=== PATIENT | female | born 1995 | race Caucasian/White ===

== ENCOUNTER → 2017-05-29 | Outpatient (CLI) | payer OTHER ==
--- NOTE | 2017-06-05 12:45 | EM ---
HOLTER MONITOR Patient was monitored for 24 hours. Baseline rhythm is sinus mechanism with normal conduction. The average rate 87 beats per minute, minimum of 50, maximum 150 beats per minute. Ventricular ectopic activity was present in the form of rare single PVCs. Supraventricular ectopic activity was present in the form of rare single PACs. Symptoms of racing heart, palpitation, tightness did not correlate with any dysrhythmia. CONCLUSION: 1. Sinus mechanism baseline rhythm. 2. Rare ventricular ectopic activity. 3. Rare supraventricular ectopic activity. 4. Symptoms did not correlate with any dysrhythmia. MTDD
== END | disposition home or self-care (01) ==
LOC: RADECHMAIN 12:46
PROVIDERS: ATTEND Family Medicine
DX: R00.2 Palpitations (principal)
CPT/HCPCS: 93225; 93226

== ENCOUNTER → 2017-12-13 | Outpatient (CLI) | payer OTHER ==
[2017-12-13 16:43] LABS: Anisocytosis Slight; HCT 35.2 % (34.0-46.0); HGB 10.6 gm/dL (11.4-16.0); Hypochromasia Marked; MCH 22.1 pg (25.0-35.0); MCHC 30.2 g/dL (31.0-37.0); MCV 73.1 fL (80.0-100.0); Mean Platelet Volume 7.6; Microcytosis Moderate; Platelet Count 280 k/uL (150-450); RBC 4.81 m/uL (3.80-5.40); WBC 14.3 k/uL (3.8-10.6)
[2017-12-13 16:53] LABS: Glucose 90 mg/dL (74-99)
[2017-12-14 05:45] LABS: Toxoplasma Antibody (IgG) <3.0 IU/mL (<7.2); Toxoplasma Antibody (IgM) <3.0 AU/mL (<8.0)
--- NOTE | 2017-12-14 11:56 | US ---
EXAMINATION TYPE: US OB <= 14 wk fetus DATE OF EXAM: 12/13/2017 COMPARISON: NONE CLINICAL HISTORY: O76 ABNORMAL OR ABSENT HEART SOUNDS. Absent heart tones at doctors office, gr avida 2, para1 EXAM PERFORMED: Transabdominal (TA) EXAM MEASUREMENTS: GESTATIONAL AGE / DATING Physician Established: (12 weeks/1 days) EDC: 06/26/2018 Dates by LMP: (12 weeks/1 days) EDC: 06/26/2018 Dates by First Scan: This is first scan Dates by Current Scan for: (9 weeks/0 days) EDC: 07/18/2018 MATERNAL ANATOMY Uterus: 9.9 x 6.8 x8.4cm, anteverted Right Ovary: 4.0 x 2.2 x 1.5cm Left Ovary: 3.3 x 2.0 x 2.2cm Post CDS / Adnexa: wnl Presence of free fluid: no Presence of corpus luteal cyst: left ovary: 1.4 x 1.5 x 1.3cm hypoechoic area, probably corpus luteum Presence of subchorionic bleed: 2.2 x 1.2 x 2.4cm complex area inferior to gestational sac, probably subchorionic bleed GESTATION / SURVEY CRL: 2.3cm (9 weeks/0 days) Yolk Sac (normal less than 6mm): 5.3mm Heart Rate: 177 bpm Rhythm: Normal IUP: Viable IUP Date of LMP: 09/19/2017 Beta HcG (if available): Not available at time of exam Viable single IUP measuring 9 weeks 0 days with a heart rate of 177bpm and an estimated delivery date of 07/18/2018, 2.4cm complex area inferior to gestational sac: probable subchorionic bleed. Single live intrauterine gestation is identified currently as gestational sac, yolk sac, and po le are seen. No free fluid is seen in pelvic cul-de-sac. There is small curvilinear fluid collection along inferior aspect of gestational sac felt to reflect small subchorionic hemorrhage. Both ovaries are identified. Within the left ovary there is 1.4 cm peripheral hypoechoic hypervascula r area felt to reflect corpus luteal cyst from recent ovulation. IMPRESSION: Single live intrauterine gestation is confirmed here, mean crown-rump length is 2.3 cm corresponding to 9 week 0 day old fetus.
== END | disposition home or self-care (01) ==
LOC: RADUSWWP 15:43
PROVIDERS: ATTEND Obstetrics & Gynecology
DX: O35.8XX0 Maternal care for other (suspected) fetal abnormality and damage, not applicable or unspecified (principal); Z3A.09 9 weeks gestation of pregnancy
CPT/HCPCS: 76801; 82565; 82947; 85027; 86762; 86777; 86778; 86780; 86850; 86900; 86901; 87340

== ENCOUNTER 2018-03-15 17:44 | Outpatient (CLI) | payer OTHER ==
[2018-03-15 18:25] LABS: Appearance,Urine Clear (Clear); Bacteria,Urine Rare /hpf; Bilirubin,Urine Negative (Negative); Blood,Urine Negative (Negative); Color,Urine Yellow; Glucose,Urine (UA) Negative (Negative); Ketones,Urine 4+ (Negative); Leukocyte Esterase,Urine Small (Negative); Mucus,Urine Moderate /hpf; Nitrite,Urine Negative (Negative); PH, Urine 5.5 (5.0-8.0); Protein,Urine 1+ (Negative); RBC,Urine 2 /hpf (0-5); Specific Gravity,Urine 1.025 (1.001-1.035); Squamous Epithelial Cell,Urine 4 /hpf (0-4); WBC,Urine 4 /hpf (0-5)
[2018-03-15] MEDS ORDERED: ONDANSETRON 4 MG/2 ML VIAL IVP STA (19:04)
[2018-03-15] MEDS: LACTATED RINGERS 1,000 ML IV SCH ×3 (19:12→21:30)
[2018-03-15 21:35] VITALS: BP 126/72; PULSE 112; RESP 16; TEMP 97.3
--- NOTE | 2018-04-03 08:57 | P.MSEPDOC ---
Presenting Problems - Arrival Data Date of Arrival on Unit: 03/15/18 Time of Arrival on Unit: 17:44 Mode of Transport: Wheelchair Medical History - Information : 2 Para: 1 Term: 1 : 0 Abortions: Spontaneous or Elective: 0 Number of Living Children: 1 - Gestational Age Gestational Age by MATTHEW (wks/days): 22 Weeks and 1 Days Vital Signs - Temperature Temperature: 97.3 F Temperature Source: Temporal Artery Scan - Pulse Right Brachial Pulse Rate: 112 Pulse Assessment Method: Automatic Cuff - Respirations Respiratory Rate: 16 Oxygen Delivery Method: Room Air O2 Sat by Pulse Oximetry: 98 - Blood Pressure Right Arm Blood Pressure: 126/72 Blood Pressure Mean: 90 Blood Pressure Source: Automatic Cuff Medical Screen Scoring (Post) - Cervical Exam Dilation: Exam Deferred Effacement: Exam Deferred Membranes: Intact - Uterine Contractions Frequency: N/A Duration: N/A Intensity: N/A - Maternal Vital Signs Maternal Temperature: N/A Maternal Blood Pressure: N/A Signs of Preeclampsia: N/A Maternal Respirations: N/A - Pain Assessment Pain Scale Used: Numeric (1 - 10) Pain Intensity: 0 - Maternal Trauma Maternal Trauma: N/A - Assessment Heart Rate: 155 Heart Rate - NICHD Category: Category I (Normal) = 0 Position: N/A Station: N/A - Total Score Total Score (Post): 0 - Post Treatment Level of Risk Post Treatment Level of Risk: Low (0-5) Physician Notification (Post) - Physician Notified Physician Notified Date: 03/15/18 Physician Notified Time: 18:52 Spoke With: Dr. Burns New Order Received: Yes (IV hydration, Zofran, if feels better after may be d/c home) - Notification Comment Comment: Pt felt better following IV hydration, no further vomit, fhts wnl Disposition - Disposition OB Disposition: Discharge to home, Written follow up instructions reviewed Discharge Date: 03/15/18 Discharge Time: 21:00 I agree with the RN Medical Screening Exam: Yes Risk & Benefit of care provided described in d/c instruction: Yes Diagnosis: VOMITING OF , UNSPECIFIED
== END 2018-03-15 21:00 | disposition home or self-care (01) ==
LOC: FBPOP 17:44
PROVIDERS: ATTEND Obstetrics & Gynecology
DX: O21.9 Vomiting of pregnancy, unspecified (principal); Z3A.22 22 weeks gestation of pregnancy
CPT/HCPCS: 96360; 96361; 96375; 81001; G0463; J2405; 99214

== ENCOUNTER 2018-07-12 05:50 | Inpatient (IN) | payer OTHER ==
--- NOTE | 2018-07-11 20:51 | P.HPOB ---
History of Present Illness H&P Date: 07/11/18 Chief Complaint: Induction of labor This is a 23-year-old female 2 para 1 with an estimated date of confinement of 07/18/2018, estimated gestational age of 39 and one sevenths weeks, presents to labor and delivery for induction of labor. She admits to good movement. She has been getting twice weekly nonstress test due to circumvallate placenta. She has also been followed by maternal- medicine. She is having irregular contractions. labs: Hepatitis B surface antigen-negative nonreactive Rubella-immune Syphilis antibody-nonreactive Toxoplasma screen-negative Random glucose-90 Hemoglobin-10.6 Blood type-A+ 1 hour Glucola-94 Group B streptococcus-negative Obstetrical history: . History of 1 vaginal delivery at 42 weeks. Gynecologic history: No history of sexual transmitted diseases. Review of Systems Constitutional: Denies chills, Denies fever Eyes: denies blurred vision, denies pain Ears, nose, mouth and throat: Denies headache, Denies sore throat Cardiovascular: Denies chest pain, Denies shortness of breath Respiratory: Denies cough Gastrointestinal: Reports abdominal pain (Irregular contractions), Denies diarrhea, Denies nausea, Denies vomiting Genitourinary: Reports pelvic pain, Reports Musculoskeletal: Reports low back pain Integumentary: Denies pruritus, Denies rash Neurological: Denies numbness, Denies weakness Endocrine: Reports fatigue Past Medical History Past Medical History: No Reported History History of Any Multi-Drug Resistant Organisms: None Reported Past Surgical History: Cholecystectomy, Tonsillectomy Past Anesthesia/Blood Transfusion Reactions: No Reported Reaction Smoking Status: Never smoker Past Alcohol Use History: None Reported Past Drug Use History: Marijuana (History prior to .) - Past Family History Mother Family Medical History: Chest Pain / Angina Additional Family Medical History / Comment(s): anxity Father Family Medical History: Thyroid Disorder Medications and Allergies Home Medications Medication Instructions Recorded Confirmed Type Pnv No.95/Ferrous Fum/Folic AC 1 each PO 07/11/18 History [ Multivitamin Tablet] Allergies Allergy/AdvReac Type Severity Reaction Status Date / Time No Known Allergies Allergy Verified 11/23/15 21:24 Exam Osteopathic Statement: *. No significant issues noted on an osteopathic structural exam other than those noted in the History and Physical/Consult. HEENT: Within normal limits Heart: Regular rate and rhythm Lungs: Clear to auscultation bilaterally Abdomen: Soft, nontender, Cervix: 2 cm/60%/-2 station heart tones: 160s by Doppler Extremities: Negative Homans Assessment and Plan (1) 39 weeks gestation of Status: Acute Code(s): Z3A.39 - 39 WEEKS GESTATION OF SNOMED Code( s): 57673367 (2) Circumvallate placenta Status: Acute Code(s): O43.119 - CIRCUMVALLATE PLACENTA, UNSPECIFIED TRIMESTER SNOMED Code(s): 3345811 Plan: Proceed with oxytocin induction of labor. Expectant management. Epidural anesthesia if desired.
[2018-07-12] MEDS ORDERED: METHYLERGONOVINE 0.2 MG/ML 1 ML AMP IM PRN (06:06)
[2018-07-12] MEDS ORDERED: OXYTOCIN 10 UNIT/ML 1 ML VIAL IM PRN (06:06)
[2018-07-12] MEDS ORDERED: LIDOCAINE 1% 20 ML VIAL (10MG/ML) FOR IV START INTRADERMA PRN (06:06)
[2018-07-12] MEDS ORDERED: OXYTOCIN 20 UNITS/1000 ML NS 1,000 ML IV SCH ×2 (06:06→16:37)
[2018-07-12] MEDS ORDERED: LIDOCAINE 1% (PF) 10 MG/ML (30 ML SDV) SQ PRN (06:06)
[2018-07-12] MEDS ORDERED: CARBOPROST TROMETHAMINE 250 MCG/ML 1 ML AMP IM PRN (06:06)
[2018-07-12] MEDS ORDERED: TERBUTALINE 1 MG/ML VIAL SQ PRN (06:06)
[2018-07-12] MEDS: LACTATED RINGERS 1,000 ML IV SCH ×3 (06:18→12:10)
[2018-07-12 06:29] LABS: Anisocytosis Moderate; Basophils % (A) 0 %; Eosinophils # (A) 0.2 k/uL (0-0.7); Eosinophils % (A) 1 %; HCT 36.5 % (34.0-46.0); HGB 11.8 gm/dL (11.4-16.0); Lymphocytes # (A) 2.3 k/uL (1.0-4.8); Lymphocytes % (A) 19 %; MCH 27.1 pg (25.0-35.0); MCHC 32.4 g/dL (31.0-37.0); MCV 83.5 fL (80.0-100.0); Mean Platelet Volume 9.3; Microcytosis Slight; Monocytes # (A) 0.5 k/uL (0-1.0); Monocytes % (A) 4 %; Neutrophils # (A) 8.7 k/uL (1.3-7.7); Neutrophils % (A) 74 %; Platelet Count 217 k/uL (150-450); RBC 4.37 m/uL (3.80-5.40); RDW 20.4 % (11.5-15.5); WBC 11.8 k/uL (3.8-10.6)
[2018-07-12] MEDS ORDERED: ROPIVACAINE 100 MG, fentaNYL (PF) 200 MCG in SODIUM CHLORIDE 0.9% 76 ML EPIDURAL ONE (12:03)
[2018-07-12] MEDS ORDERED: diphenhydrAMINE 25 MG CAP PO PRN (16:37)
[2018-07-12] MEDS ORDERED: ZOLPIDEM 5 MG TAB PO PRN (16:37)
[2018-07-12] MEDS ORDERED: SIMETHICONE 80 MG CHEWABLE PO PRN (16:37)
[2018-07-12] MEDS ORDERED: diphenhydrAMINE 50 MG CAP PO PRN (16:37)
[2018-07-12] MEDS ORDERED: HYDROCORTISONE 2.5% RECTAL CREAM 30 GM TUBE RECTAL PRN (16:37)
[2018-07-12] MEDS ORDERED: BENZOCAINE/MENTHOL SPRAY 1 GM/SPRAY AEROSOL TOPICAL PRN (16:37)
[2018-07-12] MEDS ORDERED: diphenhydrAMINE 50 MG/ML 1 ML VIAL IVP PRN ×2 (16:37)
[2018-07-12] MEDS ORDERED: LANOLIN CREAM 5 GM TUBE TOPICAL PRN (16:37)
[2018-07-12] MEDS ORDERED: WITCH HAZEL 1 EACH MED..PAD TOPICAL PRN (16:37)
[2018-07-12] MEDS ORDERED: ACETAMINOPHEN TAB 325 MG TAB PO PRN (16:37)
--- NOTE | 2018-07-12 16:51 | P.PROBDLV ---
Vaginal Delivery Note - . Vaginal Delivery Note: The patient progressed to complete dilation after oxytocin induction of labor and artificial rupture membranes with clear fluid. She did receive epidural anesthesia. Once reaching complete dilation, she began pushing. Infant's head came to a crown. 's head delivered across the perineum in a right occiput posterior lie. Nose and mouth were bulb suctioned at the perineum. With one further push the remainder the infant easily delivered reducing nuchal cord times one around the body. Infant was placed on mother's abdomen and cord was clamped and cut. A viable male infant is noted with scores of 9 at 1 minute and 10 at 5 minutes and infant weight of 7 lbs. 3 oz. Placenta delivered shortly thereafter, intact, with a three-vessel cord. Uterus contracted well after oxytocin was given and uterine massage was carried out. Bladder was also drained and some blood clot was expressed from the intrauterine cavity. No further placental tissue was noted. Inspection of the perineum revealed a first-degree perineal laceration. This area was anesthetized with 1% lidocaine and then sutured with 3-0 Vicryl suture in a running locked fashion. Estimated blood loss is approximately 200 mL's. Mother and infant are in stable condition.
[2018-07-12] MEDS: SENNOSIDES-DOCUSATE SODIUM 1 EACH TAB PO SCH (20:17)
[2018-07-13 01:16] VITALS: RESP 16
[2018-07-13] MEDS: IBUPROFEN 600 MG TAB PO PRN ×2 (04:16→10:11)
[2018-07-13 09:20] LABS: Anisocytosis Moderate; Basophils % (A) 0 %; Eosinophils # (A) 0.2 k/uL (0-0.7); Eosinophils % (A) 1 %; HCT 35.5 % (34.0-46.0); HGB 10.7 gm/dL (11.4-16.0); Hypochromasia Slight; Lymphocytes # (A) 1.7 k/uL (1.0-4.8); Lymphocytes % (A) 12 %; MCH 25.9 pg (25.0-35.0); MCHC 30.1 g/dL (31.0-37.0); MCV 86.2 fL (80.0-100.0); Mean Platelet Volume 9.1; Microcytosis Slight; Monocytes # (A) 0.5 k/uL (0-1.0); Monocytes % (A) 3 %; Neutrophils # (A) 11.2 k/uL (1.3-7.7); Neutrophils % (A) 82 %; Platelet Count 207 k/uL (150-450); RBC 4.12 m/uL (3.80-5.40); RDW 20.5 % (11.5-15.5); WBC 13.8 k/uL (3.8-10.6)
[2018-07-13] MEDS: SENNOSIDES-DOCUSATE SODIUM 1 EACH TAB PO SCH (10:12)
--- NOTE | 2018-07-13 11:43 | P.DS ---
Providers Date of admission: 07/12/18 05:50 Expected date of discharge: 07/13/18 Attending physician: Liv Burns Primary care physician: Stated None - Discharge Diagnosis(es) (1) 39 weeks gestation of Current Visit: No Status: Acute (2) Circumvallate placenta Current Visit: No Status: Acute Hospital Course: This is a 23-year-old female 2 para 1 at 39 and one sevenths weeks who presented for induction of labor. She underwent oxytocin induction of labor and artificial rupture membranes with clear fluid noted. She did receive epidural anesthesia. She delivered a viable male infant on 07/12/2018 with scores of 9 at 1 minute and 10 at 5 minutes and infant weight of 7 lbs. 3 oz. Nuchal cord times one was noted. Her course has been uncomplicated. She is breast-feeding. Lochia is decreasing. Pain is fairly well controlled. Vital signs are stable. Abdomen is soft with fundus firm and nontender. Extremities show negative Homans. Impression is status post vaginal delivery day #1. Plan is to discharge home today. Routine instructions are given. She will be given a prescription for ibuprofen and a breast pump. She is advised to call the office if she has any further questions or concerns prior to her appointment time. She is advised to follow up in 6 weeks in the office. Procedures: Oxytocin induction of labor Spontaneous vaginal delivery of a viable male on 07/12/2018. Patient Condition at Discharge: Stable Plan - Discharge Summary New Discharge Prescriptions: New Ibuprofen [Motrin] 600 mg PO Q6HR PRN #60 tab PRN Reason: Mild Pain Or Fever >= 100.5 Continue Pnv No.95/Ferrous Fum/Folic AC [ Multivitamin Tablet] 1 each PO DAILY No Action Ferrous Sulfate [Feosol] 325 mg PO DAILY Discharge Medication List Pnv No.95/Ferrous Fum/Folic AC [ Multivitamin Tablet] 1 each PO DAILY [History] Ferrous Sulfate [Feosol] 325 mg PO DAILY 07/12/18 [History] Ibuprofen [Motrin] 600 mg PO Q6HR PRN #60 tab 07/13/18 [Rx] Follow up Appointment(s)/Referral(s): Liv Burns DO [Doctor of Osteopathic Medicine] - 6 Weeks Activity/Diet/Wound Care/Special Instructions: Instructions 1. Do not begin any exercise program for 3 weeks. 2. Do not resume sexual relations for 3 weeks or longer if uncomfortable. 3. You may take tub baths or showers at any time. 4. You may use tampons if desired after 3 weeks. 5. Keep the area of episiotomy (stitches) clean and dry. 6. If you are not nursing, wear a good fitting, supportive bra during the day and limit fluid intake for at least 1 week to prevent breast engorgement. 7. Call the office, [phone], within the next week to make appointment for your 6 week checkup if it has not already been made. 8. Report any of the following occurrences to the doctor promptly: a. Heavy, excessive bleeding b. Chills, fever c. Burning or frequency of urination d. Pain or redness and breasts if nursing e. Increasing pain or swelling in episiotomy (stitches). In addition to the above instructions, the following additional should be followed: 1. No heavy lifting or straining (exercising) until after 6 week checkup. 2. Keep abdominal incision clean and dry: You may wear a dressing if more comfortable. 3. Make office appointment for 10 days after going home or as instructed by her doctor. Discharge Disposition: HOME SELF-CARE
[2018-07-13 16:16] VITALS: BP 104/68; PULSE 68; TEMP 97.8
== END 2018-07-13 17:15 | disposition home or self-care (01) | DRG 775 ==
LOC: 4FBP 05:50
PROVIDERS: ADMIT Obstetrics & Gynecology; ATTEND Obstetrics & Gynecology
PROC: 10E0XZZ Delivery of Products of Conception, External Approach (ICD-10-PCS; principal; 2018-07-12)
PROC: 0HQ9XZZ Repair Perineum Skin, External Approach (ICD-10-PCS; 2018-07-12)
PROC: 3E033VJ Introduction of Other Hormone into Peripheral Vein, Percutaneous Approach (ICD-10-PCS; 2018-07-12)
PROC: 10907ZC Drainage of Amniotic Fluid, Therapeutic from Products of Conception, Via Natural or Artificial Opening (ICD-10-PCS; 2018-07-12)
PROC: 00HU33Z Insertion of Infusion Device into Spinal Canal, Percutaneous Approach (ICD-10-PCS; 2018-07-12)
PROC: 3E0R3BZ Introduction of Anesthetic Agent into Spinal Canal, Percutaneous Approach (ICD-10-PCS; 2018-07-12)
DX: O43.113 Circumvallate placenta, third trimester (principal); O69.81X0 Labor and delivery complicated by cord around neck, without compression, not applicable or unspecified; O70.0 First degree perineal laceration during delivery; Z37.0 Single live birth; Z3A.39 39 weeks gestation of pregnancy; Z79.899 Other long term (current) drug therapy
CPT/HCPCS: 85025

== ENCOUNTER 2019-01-12 08:10 | Emergency (ER) | payer OTHER ==
[2019-01-12 08:19] VITALS: RESP 18; TEMP 98.2
[2019-01-12] MEDS ORDERED: KETOROLAC 30 MG/ML 1 ML VIAL IM STA (09:04)
[2019-01-12] MEDS ORDERED: DIAZEPAM 5 MG/ML 2 ML INJ IM ONE (09:08)
[2019-01-12] MEDS ORDERED: HYDROmorphone 0.5 MG/0.5 ML SYRINGE IM STA (11:08)
--- NOTE | 2019-01-12 12:21 | ED ---
General Adult HPI - General Chief complaint: Back Pain/Injury Stated complaint: BACK PAIN Time Seen by Provider: 01/12/19 08:23 Source: patient, RN notes reviewed Mode of arrival: EMS Limitations: no limitations - History of Present Illness Initial comments: 23-year-old female presents to the emergency department for a chief complaint of back pain 3 weeks. Patient states that her back pain seems to be worsening. She states that the pain is along the sides of her spine. She states that if she is laying still he feels better. However if she moves she starts to feel her low back cramping up. She states that the pain is mostly paraspinal and denies any midline pain. She states she feels the muscles cramping when she moves. She states today it was difficult to walk due to this cramping pain. She denies any leg weakness or her legs giving out. She does admit to left leg radicular pain. States she has had a history of sciatica since her previous . Patient states she was seen at urgent care yesterday and had negative x-rays of the lumbar spine. Patient states she was given Toradol and Robaxin which do not seem to be helping much with her pain. Patient has no other complaints at this time including shortness of breath, chest pain, abdominal pain, nausea or vomiting, headache, or visual changes. - Related Data Home Medications Medication Instructions Recorded Confirmed Methocarbamol [Robaxin] 500 mg PO BID 01/12/19 01/12/19 Naproxen 500 mg PO BID 01/12/19 01/12/19 Norgestimate-Ethinyl Estradiol 1 tab PO DAILY 01/12/19 01/12/19 [Tri-Sprintec Tablet] Previous Rx's Medication Instructions Recorded Diazepam [Valium] 5 mg PO Q8H PRN 3 Days #9 tab 01/12/19 predniSONE 50 mg PO DAILY #5 tablet 01/12/19 Allergies Allergy/AdvReac Type Severity Reaction Status Date / Time No Known Allergies Allergy Verified 01/12/19 10:12 Review of Systems ROS Statement: Those systems with pertinent positive or pertinent negative responses have been documented in the HPI. ROS Other: All systems not noted in ROS Statement are negative. Past Medical History Past Medical History: No Reported History History of Any Multi-Drug Resistant Organisms: None Reported Past Surgical History: Cholecystectomy, Tonsillectomy Past Anesthesia/Blood Transfusion Reactions: No Reported Reaction Past Psychological History: No Psychological Hx Reported, Anxiety Smoking Status: Never smoker Past Alcohol Use History: Rare Past Drug Use History: Marijuana - Past Family History Mother Family Medical History: Chest Pain / Angina Additional Family Medical History / Comment(s): anxity Father Family Medical History: Thyroid Disorder General Exam Limitations: no limitations General appearance: alert, in no apparent distress Head exam: Present: atraumatic, normocephalic, normal inspection Eye exam: Present: normal appearance, PERRL, EOMI. Absent: scleral icterus, conjunctival injection, periorbital swelling ENT exam: Present: normal exam, mucous membranes moist Neck exam: Present: normal inspection, full ROM. Absent: tenderness, meningismus, lymphadenopathy Respiratory exam: Present: normal lung sounds bilaterally. Absent: respiratory distress, wheezes, rales, rhonchi, stridor Cardiovascular Exam: Present: regular rate, normal rhythm, normal heart sounds. Absent: systolic murmur, diastolic murmur, rubs, gallop, clicks GI/Abdominal exam: Present: soft, normal bowel sounds. Absent: distended, tenderness, guarding, rebound, rigid Extremities exam: Present: normal capillary refill (Refill less than 2 seconds and DP pulse 2+ in lower extremities bilaterally), other (sensation intact throughout lower extremities bilat. sensation intact through saddle region and bilat upper thighs) Back exam: Present: paraspinal tenderness (She was mild tenderness of the paraspinal muscles bilaterally.), other (Positive straight leg raise test on the left leg, negative on the right. Patient able to stand to use the restroom. Patient able to ambulate). Absent: full ROM (Unable to flex or extend lumbar spine greater than 20.), vertebral tenderness (No cervical, thoracic, or lumbar spine tenderness.) Neurological exam: Present: alert, oriented X3, CN II-XII intact Psychiatric exam: Present: normal affect, normal mood Course Vital Signs 01/12/19 01/12/19 01/12/19 08:14 08:15 08:30 Temperature 98.2 F Pulse Rate 97 71 62 Respiratory 18 18 18 Rate Blood Pressure 124/81 124/81 124/81 O2 Sat by Pulse 98 97 96 Oximetry 01/12/19 01/12/19 01/12/19 09:00 09:30 10:00 Temperature Pulse Rate 68 66 68 Respiratory 18 18 18 Rate Blood Pressure 118/73 124/79 110/98 O2 Sat by Pulse 99 97 97 Oximetry 01/12/19 01/12/19 10:30 12:30 Temperature Pulse Rate 69 68 Respiratory 18 18 Rate Blood Pressure 136/85 132/81 O2 Sat by Pulse 98 97 Oximetry Medical Decision Making - Medical Decision Making 23-year-old female presents to the emergency department for a chief complaint of back pain. Patient was admitted to radicular pain into the left leg. Patient is on Robaxin and Motrin without relief. She states pain is mostly paraspinal and cramping in nature. Sensation is intact throughout lower extremities. Full strength 5 out of 5 in the lower extremities bilaterally. Neurovascular intact. No neuro deficits. Patient denying bladder or bowel changes. Patient denying saddle anesthesia Patient is able to stand and ambulate in the room although does have pain when doing so due to cramping nature. X-rays were negative at urgent care. She had negative and clear urine at that time. Patient was given Toradol and Valium and is feeling much better. Patient also given Dilaudid throughout her stay. Patient is feeling well enough to go home. However I did discuss that patient may need an MRI outpatient and to follow up with primary care or Dr. Garcia tomorrow. If symptoms are worsening or if she is having bladder or bowel changes saddle anesthesia or leg weakness to return here immediately. All questions answered. Patient agrees with plan of care. Disposition Clinical Impression: Back pain, Muscle spasm Disposition: HOME SELF-CARE Condition: Good Instructions (If sedation given, give patient instructions): Acute Low Back Pain (ED) Additional Instructions: Please take medications as directed. Do not drive or operate machinery while taking Valium. Please follow-up with your primary care provider or orthopedics tomorrow. Return here to the emergency department if you have any worsening symptoms. Prescriptions: Diazepam [Valium] 5 mg PO Q8H PRN 3 Days #9 tab PRN Reason: Pain predniSONE 50 mg PO DAILY #5 tablet Is patient prescribed a controlled substance at d/c from ED?: Yes When asked, does pt state using other controlled substances?: No If prescribed controlled substance>3 days was MAPS reviewed?: Prescribed <3 Days Referrals: Mallory Dyer MD [Primary Care Provider] - 1-2 days Sebastián Garcia DO [Doctor of Osteopathic Medicine] - 1-2 days Time of Disposition: 12:19
[2019-01-12 12:56] VITALS: BP 132/81; PULSE 68
== END 2019-01-12 12:55 | disposition home or self-care (01) ==
LOC: EC 08:10
DX: M54.9 Dorsalgia, unspecified (principal); M62.830 Muscle spasm of back; Z79.1 Long term (current) use of non-steroidal anti-inflammatories (NSAID); Z79.899 Other long term (current) drug therapy; Z79.3 Long term (current) use of hormonal contraceptives
CPT/HCPCS: 99283; 96372 ×3; J3360; J1885; J1170

== ENCOUNTER → 2019-05-06 | Outpatient (CLI) | payer OTHER ==
--- NOTE | 2019-05-06 11:48 | XR ---
EXAMINATION TYPE: XR lumbar spine 2 or 3V DATE OF EXAM: 05/06/2019 CLINICAL HISTORY: Low back pain for a few months. TECHNIQUE: Frontal and lateral images of the lumbar spine are obtained. COMPARISON: None. FINDINGS: There are 5 lumbar type vertebral bodies identified given the assumption of the accessory right L1 rib. The lumbar spine shows satisfactory alignment without evidence of acute fracture or di slocation. Vertebral body heights and disk space heights are within normal limits. The overlying so ft tissue appears unremarkable. IMPRESSION: As above.
== END | disposition home or self-care (01) ==
LOC: RADXRMAIN 10:06
PROVIDERS: ATTEND Family Medicine
DX: M54.5 Low back pain (principal)
CPT/HCPCS: 72100

== ENCOUNTER 2019-06-17 17:51 | Emergency (ER) | payer OTHER ==
[2019-06-17 18:02] VITALS: TEMP 97.9
[2019-06-17] MEDS ORDERED: ONDANSETRON 4 MG/2 ML VIAL IVP STA (18:41)
[2019-06-17] MEDS ORDERED: SODIUM CHLORIDE 0.9% 1,000 ML IV STA (18:41)
[2019-06-17 19:26] VITALS: RESP 18
[2019-06-17 19:27] LABS: ALT 38 U/L (9-52); AST 33 U/L (14-36); African American GFR (CKD) >90 (>60 ml/min/1.73 sqM); Albumin 4.3 g/dL (3.5-5.0); Alkaline Phosphatase 128 U/L (38-126); Amylase 51 U/L (30-110); Anion Gap 9 mmol/L; Blood Urea Nitrogen 6 mg/dL (7-17); Calcium 9.7 mg/dL (8.4-10.2); Carbon Dioxide 23 mmol/L (22-30); Chloride 107 mmol/L (98-107); Glucose 97 mg/dL (74-99); Potassium 4.2 mmol/L (3.5-5.1); Sodium 139 mmol/L (137-145); Total Bilirubin 0.2 mg/dL (0.2-1.3); Total Protein 7.3 g/dL (6.3-8.2)
[2019-06-17 19:35] LABS: Anisocytosis Slight; Basophils % (A) 0 %; Eosinophils # (A) 0.2 k/uL (0-0.7); Eosinophils % (A) 2 %; HCT 42.9 % (34.0-46.0); HGB 14.1 gm/dL (11.4-16.0); Lymphocytes # (A) 1.5 k/uL (1.0-4.8); Lymphocytes % (A) 19 %; MCH 28.4 pg (25.0-35.0); MCHC 32.8 g/dL (31.0-37.0); MCV 86.5 fL (80.0-100.0); Mean Platelet Volume 8.7; Monocytes # (A) 0.3 k/uL (0-1.0); Monocytes % (A) 4 %; Neutrophils # (A) 5.8 k/uL (1.3-7.7); Neutrophils % (A) 73 %; Platelet Count 243 k/uL (150-450); RBC 4.96 m/uL (3.80-5.40); RDW 16.6 % (11.5-15.5)
[2019-06-17 20:00] LABS: Appearance,Urine Cloudy (Clear); Bilirubin,Urine Negative (Negative); Blood,Urine Negative (Negative); Color,Urine Yellow; Glucose,Urine (UA) Negative (Negative); Hyaline Casts,Urine 4 /lpf (0-2); Ketones,Urine Negative (Negative); Leukocyte Esterase,Urine Small (Negative); Mucus,Urine Moderate /hpf; Nitrite,Urine Negative (Negative); Protein,Urine Trace (Negative); RBC,Urine 6 /hpf (0-5); Specific Gravity,Urine 1.022 (1.001-1.035); Squamous Epithelial Cell,Urine 13 /hpf (0-4); WBC,Urine 3 /hpf (0-5)
--- NOTE | 2019-06-17 20:52 | CT ---
EXAMINATION TYPE: CT abdomen pelvis w con DATE OF EXAM: 06/17/2019 COMPARISON: None HISTORY: NVD x several weeks CT DLP: 1191.6 mGycm Automated exposure control for dose reduction was used. CONTRAST: CT scan of the abdomen pelvis is performed with IV Contrast, patient injected with 100 mL of Isovue 3 00. FINDINGS- LUNG BASES- No significant abnormality is appreciated. LIVER/GB- No gross abnormality is appreciated. PANCREAS- No gross abnormality is seen. SPLEEN- No gross abnormality is seen. ADRENALS- No gross abnormality is seen. KIDNEYS/BLADDER- no hydronephrosis nephrolithiasis or renal mass. BOWEL- no bowel dilatation. Appendix not seen with certainty. A few scattered lymph nodes are seen i n the right mesentery.. LYMPH NODES- No greater than 1cm abdominal or pelvic lymph nodes areappreciated. OSSEOUS STRUCTURES- No significant abnormality is seen. OTHER- asymmetry of the ovaries on the right suspect a 2 cm right-sided ovarian cyst. Tiny fat-conta ining periumbilical hernia. IMPRESSION- 1. A few scattered lymph nodes are seen in the mesentery in the right associated with a mild mesenter ic adenitis correlate clinically. 2. Question a dominant follicle or small right ovarian cyst. 3. Nonvisualization of the appendix.
[2019-06-17 21:54] VITALS: BP 122/79; PULSE 70
--- NOTE | 2019-06-17 22:15 | ED ---
Nausea/Vomiting/Diarrhea HPI - General Chief complaint: Nausea/Vomiting/Diarrhea Stated complaint: NVD Time Seen by Provider: 06/17/19 18:41 Source: patient Mode of arrival: ambulatory Limitations: no limitations - History of Present Illness Initial comments: 24yo female with hx of previous cholecystectomy presenting today for cc of epigastric pain, vomiting diarrhea x >1 month. Patient sates that she has had symptoms for "much longer" than a month. SHe states she has been evaluated on multiple occasions by her PCP. Who ordered an outpatient CT scheduled for tomorrow. Patient denies jaundice, noticing a pattern with the pain, alleviating or aggrevating factors. She states for the past two weeks the pain appeared increased, denies changes within the last week. Patient denies travel, melena, hematochezia, RLQ pain, hematemesis, fever, recent antibiotic use or recent surgeries. Patient denies . Remaining review of system negative. Graeme koehler states she presents today because of the persistence of symptoms. - Related Data Home Medications Medication Instructions Recorded Confirmed Cetirizine HCl 10 mg PO DAILY 06/17/19 06/17/19 DULoxetine HCL [Cymbalta] 30 mg PO DAILY 06/17/19 06/17/19 Loperamide HCl [Loperamide] 2 mg PO QID PRN 06/17/19 06/17/19 Norgestimate-Ethinyl Estradiol 1 tab PO DAILY 06/17/19 06/17/19 [Sprintec 28 Day Tablet] Omeprazole [PriLOSEC] 20 mg PO AC-BRKFST 06/17/19 06/17/19 Previous Rx's Medication Instructions Recorded Cephalexin [Keflex] 500 mg PO Q12HR 5 Days #10 cap 06/17/19 Ondansetron Odt [Zofran Odt] 4 mg PO Q8HR PRN 7 Days #21 tab 06/17/19 Allergies Allergy/AdvReac Type Severity Reaction Status Date / Time No Known Allergies Allergy Verified 06/17/19 18:52 Review of Systems ROS Statement: Those systems with pertinent positive or pertinent negative responses have been documented in the HPI. ROS Other: All systems not noted in ROS Statement are negative. Past Medical History Past Medical History: No Reported History History of Any Multi-Drug Resistant Organisms: None Reported Past Surgical History: Cholecystectomy, Tonsillectomy Past Anesthesia/Blood Transfusion Reactions: No Reported Reaction Past Psychological History: No Psychological Hx Reported, Anxiety Smoking Status: Never smoker Past Alcohol Use History: Rare Past Drug Use History: Marijuana - Past Family History Mother Family Medical History: Chest Pain / Angina Additional Family Medical History / Comment(s): anxity Father Family Medical History: Thyroid Disorder General Exam - General Exam Comments Initial Comments: General: The patient is awake and alert, in no distress, and does not appear acutely ill. Eye: Pupils are equal, round and reactive to light, extra-ocular movements are intact. No nystagmus. There is normal conjunctiva bilaterally. No signs of icterus. Ears, nose, mouth and throat: There are moist mucous membranes and no oral lesions. Neck: The neck is supple, there is no tenderness or JVD. Cardiovascular: There is a regular rate and rhythm. No murmur, rub or gallop is appreciated. Respiratory: Lungs are clear to auscultation, respirations are non-labored, breath sounds are equal. No wheezes, stridor, rales, or rhonchi. Gastrointestinal: Soft, non-distended, but appears to be mild tenderness to palpation of the epigastric region of the abdomen without masses or organomegaly noted. No right lower quadrant tenderness appreciated. No lower abdominal or pelvic tenderness appreciated. There is no rebound or guarding present. No CVA tenderness. Bowel sounds are unremarkable. Musculoskeletal: Normal ROM, no tenderness. Strength 5/5. Sensation intact. Pulses equal bilaterally 2+. Neurological: A&O x 3. CN II-XII intact, There are no obvious motor or sensory deficits. Coordination appears grossly intact. Speech is normal. Skin: Skin is warm and dry and no rashes or lesions are noted. Psychiatric: Cooperative, appropriate mood & affect, normal judgment. Limitations: no limitations Course Vital Signs 06/17/19 06/17/19 06/17/19 18:00 18:58 19:24 Temperature 97.9 F Pulse Rate 83 80 80 Respiratory 16 16 18 Rate Blood Pressure 122/77 126/79 128/81 O2 Sat by Pulse 98 99 100 Oximetry 06/17/19 21:52 Temperature 97.9 F Pulse Rate 70 Respiratory 18 Rate Blood Pressure 122/79 O2 Sat by Pulse 100 Oximetry Medical Decision Making - Medical Decision Making Well-appearing 24-year-old female. No signs of dehydration clinically on examination. Patient complains of diarrhea and vomiting abdominal pain on and off for the past month. Patient denies any specific alleviating or aggravating factors. Patient states she has seen her primary care for this complaint and had an outpatient CT ordered for tomorrow. CT was obtained today revealing no acute abdominal process the appendix was not visualized her patient has no complaints on examination or history taking of right lower quadrant tenderness. Patient's tenderness is in the epigastric region. Lipase within normal limits. No noted abnormalities of the pancreas. Patient unable to provide a stool sample. Urinalysis revealed findings consistent with possible developing urinary tract infection patient states she is prone to them and would like treatment. Patient ordered Keflex 500 mg twice a day outpatient. Otherwise at this time patient's symptoms are controlled Zofran she appears well. She is agreeable discharge with gastroenterology follow-up for further evaluation. Case discussed with attending provider Dr. Hammond who is agreeable with care plan. - Lab Data Result diagrams: 06/17/19 19:06/17/19 19:01 Lab Results 06/17/19 06/17/19 06/17/19 Range/Units 19:01 19:01 19:46 WBC 8.0 (3.8-10.6) k/uL RBC 4.96 (3.80-5.40) m/uL Hgb 14.1 (11.4-16.0) gm/dL Hct 42.9 (34.0-46.0) % MCV 86.5 (80.0-100.0) fL MCH 28.4 (25.0-35.0) pg MCHC 32.8 (31.0-37.0) g/dL RDW 16.6 H (11.5-15.5) % Plt Count 243 (150-450) k/uL Neutrophils % 73 % Lymphocytes % 19 % Monocytes % 4 % Eosinophils % 2 % Basophils % 0 % Neutrophils # 5.8 (1.3-7.7) k/uL Lymphocytes # 1.5 (1.0-4.8) k/uL Monocytes # 0.3 (0-1.0) k/uL Eosinophils # 0.2 (0-0.7) k/uL Basophils # 0.0 (0-0.2) k/uL Anisocytosis Slight Sodium 139 (137-145) mmol/L Potassium 4.2 (3.5-5.1) mmol/L Chloride 107 (98-107) mmol/L Carbon Dioxide 23 (22-30) mmol/L Anion Gap 9 mmol/L BUN 6 L (7-17) mg/dL Creatinine 0.68 (0.52-1.04) mg/dL Est GFR (CKD-EPI)AfAm >90 (>60 ml/min/1.73 sqM) Est GFR (CKD-EPI)NonAf >90 (>60 ml/min/1.73 sqM) Glucose 97 (74-99) mg/dL Calcium 9.7 (8.4-10.2) mg/dL Total Bilirubin 0.2 (0.2-1.3) mg/dL AST 33 (14-36) U/L ALT 38 (9-52) U/L Alkaline Phosphatase 128 H (38-126) U/L Total Protein 7.3 (6.3-8.2) g/dL Albumin 4.3 (3.5-5.0) g/dL Amylase 51 (30-110) U/L Lipase 44 (23-300) U/L Urine Color Urine Appearance (Clear) Urine pH (5.0-8.0) Ur Specific [place] (1.001-1.035) Urine Protein (Negative) Urine Glucose (UA) (Negative) Urine Ketones (Negative) Urine Blood (Negative) Urine Nitrite (Negative) Urine Bilirubin (Negative) Urine Urobilinogen (<2.0) mg/dL Ur Leukocyte Esterase (Negative) Urine RBC (0-5) /hpf Urine WBC (0-5) /hpf Ur Squamous Epith Cells (0-4) /hpf Hyaline Casts (0-2) /lpf Urine Mucus (None) /hpf Urine HCG, Qual Not Detected (Not Detectd) 06/17/19 Range/Units 19:46 WBC (3.8-10.6) k/uL RBC (3.80-5.40) m/uL Hgb (11.4-16.0) gm/dL Hct (34.0-46.0) % MCV (80.0-100.0) fL MCH (25.0-35.0) pg MCHC (31.0-37.0) g/dL RDW (11.5-15.5) % Plt Count (150-450) k/uL Neutrophils % % Lymphocytes % % Monocytes % % Eosinophils % % Basophils % % Neutrophils # (1.3-7.7) k/uL Lymphocytes # (1.0-4.8) k/uL Monocytes # (0-1.0) k/uL Eosinophils # (0-0.7) k/uL Basophils # (0-0.2) k/uL Anisocytosis Sodium (137-145) mmol/L Potassium (3.5-5.1) mmol/L Chloride (98-107) mmol/L Carbon Dioxide (22-30) mmol/L Anion Gap mmol/L BUN (7-17) mg/dL Creatinine (0.52-1.04) mg/dL Est GFR (CKD-EPI)AfAm (>60 ml/min/1.73 sqM) Est GFR (CKD-EPI)NonAf (>60 ml/min/1.73 sqM) Glucose (74-99) mg/dL Calcium (8.4-10.2) mg/dL Total Bilirubin (0.2-1.3) mg/dL AST (14-36) U/L ALT (9-52) U/L Alkaline Phosphatase (38-126) U/L Total Protein (6.3-8.2) g/dL Albumin (3.5-5.0) g/dL Amylase (30-110) U/L Lipase (23-300) U/L Urine Color Yellow Urine Appearance Cloudy H (Clear) Urine pH 6.0 (5.0-8.0) Ur Specific [place] 1.022 (1.001-1.035) Urine Protein Trace H (Negative) Urine Glucose (UA) Negative (Negative) Urine Ketones Negative (Negative) Urine Blood Negative (Negative) Urine Nitrite Negative (Negative) Urine Bilirubin Negative (Negative) Urine Urobilinogen 2.0 (<2.0) mg/dL Ur Leukocyte Esterase Small H (Negative) Urine RBC 6 H (0-5) /hpf Urine WBC 3 (0-5) /hpf Ur Squamous Epith Cells 13 H (0-4) /hpf Hyaline Casts 4 H (0-2) /lpf Urine Mucus Moderate H (None) /hpf Urine HCG, Qual (Not Detectd) Disposition Clinical Impression: Chronic diarrhea, Chronic vomiting, Abdominal pain Disposition: HOME SELF-CARE Condition: Good Instructions (If sedation given, give patient instructions): Abdominal Pain (ED) Additional Instructions: Please use medication as discussed. Please follow-up with family doctor in the next 2 day, please schedule appointment with GI as discussed, information attached below. Please return to emergency room if the symptoms increase or worsen or for any other concerns-worsening pain, increase of vomiting and diarrhea . Prescriptions: Cephalexin [Keflex] 500 mg PO Q12HR 5 Days #10 cap Ondansetron Odt [Zofran Odt] 4 mg PO Q8HR PRN 7 Days #21 tab PRN Reason: Vomiting Is patient prescribed a controlled substance at d/c from ED?: No Referrals: Mallory Dyer MD [Primary Care Provider] - 1-2 days Gay Guerra MD [STAFF PHYSICIAN] - 1-2 days Time of Disposition: 22:15
== END 2019-06-17 22:42 | disposition home or self-care (01) ==
LOC: EC 17:51
DX: K52.9 Noninfective gastroenteritis and colitis, unspecified (principal); F41.9 Anxiety disorder, unspecified; Z79.3 Long term (current) use of hormonal contraceptives; Z79.899 Other long term (current) drug therapy; Z90.49 Acquired absence of other specified parts of digestive tract
CPT/HCPCS: 36415; 74177; 80053; 81001; 81025; 82150; 83690; 85025; 96361; 96374; 99284

== ENCOUNTER 2019-07-17 17:33 | Emergency (ER) | payer OTHER ==
[2019-07-17] MEDS ORDERED: SODIUM CHLORIDE 0.9% 1,000 ML IV STA (18:26)
[2019-07-17] MEDS ORDERED: ONDANSETRON 4 MG/2 ML VIAL IVP STA (18:27)
[2019-07-17 19:26] VITALS: RESP 18
[2019-07-17 19:31] LABS: Appearance,Urine Clear (Clear); Bilirubin,Urine Negative (Negative); Blood,Urine Negative (Negative); Color,Urine Yellow; Glucose,Urine (UA) Negative (Negative); Ketones,Urine Negative (Negative); Leukocyte Esterase,Urine Small (Negative); Mucus,Urine Few /hpf; Nitrite,Urine Negative (Negative); Protein,Urine Trace (Negative); RBC,Urine 1 /hpf (0-5); Specific Gravity,Urine 1.018 (1.001-1.035); Squamous Epithelial Cell,Urine 2 /hpf (0-4); Urobilinogen,Urine <2.0 mg/dL (<2.0); WBC,Urine 7 /hpf (0-5)
[2019-07-17 19:34] LABS: Basophils % (A) 0 %; Eosinophils # (A) 0.1 k/uL (0-0.7); Eosinophils % (A) 1 %; HCT 47.7 % (34.0-46.0); HGB 15.9 gm/dL (11.4-16.0); Lymphocytes # (A) 0.7 k/uL (1.0-4.8); Lymphocytes % (A) 8 %; MCH 28.6 pg (25.0-35.0); MCHC 33.3 g/dL (31.0-37.0); MCV 85.8 fL (80.0-100.0); Mean Platelet Volume 8.4; Monocytes # (A) 0.1 k/uL (0-1.0); Monocytes % (A) 1 %; Neutrophils # (A) 7.3 k/uL (1.3-7.7); Neutrophils % (A) 89 %; Platelet Count 274 k/uL (150-450); RBC 5.55 m/uL (3.80-5.40); RDW 14.8 % (11.5-15.5); WBC 8.2 k/uL (3.8-10.6)
[2019-07-17 19:39] LABS: ALT 52 U/L (9-52); AST 50 U/L (14-36); African American GFR (CKD) >90 (>60 ml/min/1.73 sqM); Albumin 4.9 g/dL (3.5-5.0); Alkaline Phosphatase 89 U/L (38-126); Anion Gap 11 mmol/L; Blood Urea Nitrogen 9 mg/dL (7-17); Calcium 10.7 mg/dL (8.4-10.2); Carbon Dioxide 24 mmol/L (22-30); Chloride 106 mmol/L (98-107); Glucose 118 mg/dL (74-99); Sodium 141 mmol/L (137-145); Total Bilirubin 0.6 mg/dL (0.2-1.3); Total Protein 8.5 g/dL (6.3-8.2)
[2019-07-17 19:41] LABS: Potassium 5.2 mmol/L (3.5-5.1)
[2019-07-17 19:48] LABS: D-Dimer 0.3 mg/L FEU (<0.60); INR 0.9 (<1.2); Partial Thromboplastin Time 23.9 sec (22.0-30.0); Prothrombin Time 9.6 sec (9.0-12.0)
--- NOTE | 2019-07-17 19:49 | XR ---
EXAMINATION TYPE: XR chest 2V DATE OF EXAM: 07/17/2019 COMPARISON: 11/23/2015 HISTORY: Dizziness TECHNIQUE: Frontal and lateral views of the chest are obtained. FINDINGS: Heart and mediastinum are normal. Lungs are clear. Diaphragm is normal. Bony thorax appear s normal. IMPRESSION: Normal chest. No change.
--- NOTE | 2019-07-17 20:09 | ED ---
General Adult HPI - General Chief complaint: Dizziness Stated complaint: dizzy, cold sweats Time Seen by Provider: 07/17/19 17:54 Source: patient Mode of arrival: ambulatory Limitations: no limitations - History of Present Illness Initial comments: 24-year-old female patient presents to the emergency department today for evaluation of dizziness, palpitations, and nausea. The patient states she has been feeling unwell throughout the day today. Patient states that she often feels a racing in her heart and then will become lightheaded and nauseous. D enies any shortness of breath. Denies abdominal pain, nausea or vomiting. Patient states she was having any symptoms in the past however they resolved spontaneously. States they were unable to find a diagnosis for her. She denies any chance of . Denies any recent head injury. Denies chest pain but states she has had some tightness. Denies any excessive intake of caffeine. Denies alcohol or street drug use. Denies chance of . Patient denies any recent rash, fever, chills, abdominal pain, nausea, vomiting, diarrhea, constipation, back pain, numbness, tingling, dizziness, weakness, hematuria, dysuria, urinary urgency, urinary frequency, headache, visual changes, or any other complaints. - Related Data Home Medications Medication Instructions Recorded Confirmed Cetirizine HCl 10 mg PO DAILY 06/17/19 07/17/19 DULoxetine HCL [Cymbalta] 30 mg PO DAILY 06/17/19 07/17/19 Norgestimate-Ethinyl Estradiol 1 tab PO DAILY 06/17/19 07/17/19 [Sprintec 28 Day Tablet] Omeprazole [PriLOSEC] 20 mg PO AC-BRKFST 06/17/19 07/17/19 Methocarbamol [Robaxin] 750 mg PO BID 07/17/19 07/17/19 Prochlorperazine [Compazine] 10 mg PO Q8H PRN 07/17/19 07/17/19 traMADol HCL [Ultram] 50 mg PO BID PRN 07/17/19 07/17/19 Previous Rx's Medication Instructions Recorded Ondansetron Odt [Zofran Odt] 4 mg PO Q8HR PRN 7 Days #21 tab 06/17/19 Allergies Allergy/AdvReac Type Severity Reaction Status Date / Time No Known Allergies Allergy Verified 07/17/19 22:13 Review of Systems ROS Statement: Those systems with pertinent positive or pertinent negative responses have been documented in the HPI. ROS Other: All systems not noted in ROS Statement are negative. Past Medical History Past Medical History: No Reported History History of Any Multi-Drug Resistant Organisms: None Reported Past Surgical History: Cholecystectomy, Tonsillectomy Past Anesthesia/Blood Transfusion Reactions: No Reported Reaction Past Psychological History: No Psychological Hx Reported, Anxiety Smoking Status: Never smoker Past Alcohol Use History: Rare Past Drug Use History: Marijuana - Past Family History Mother Family Medical History: Chest Pain / Angina Additional Family Medical History / Comment(s): anxity Father Family Medical History: Thyroid Disorder General Exam Limitations: no limitations General appearance: alert, in no apparent distress, other (This is a well- developed, well-nourished adult female patient in no acute distress. Vital signs upon presentation are temperature 98.9F, pulse 108, respirations 20, bloo d pressure 122/79, pulse ox 99% on room air.) Eye exam: Present: normal appearance, PERRL, EOMI. Absent: scleral icterus, conjunctival injection, periorbital swelling ENT exam: Present: normal exam, normal oropharynx, mucous membranes moist Respiratory exam: Present: normal lung sounds bilaterally. Absent: respiratory distress, wheezes, rales, rhonchi, stridor Cardiovascular Exam: Present: normal rhythm, tachycardia, normal heart sounds. Absent: systolic murmur, diastolic murmur, rubs, gallop, clicks GI/Abdominal exam: Present: soft, normal bowel sounds. Absent: distended, tenderness, guarding, rebound, rigid Neurological exam: Present: alert, oriented X3, CN II-XII intact Psychiatric exam: Present: normal affect Skin exam: Present: warm, dry, intact, normal color. Absent: rash Course Vital Signs 07/17/19 07/17/19 07/17/19 17:38 19:25 21:01 Temperature 98.9 F Pulse Rate 108 H 85 75 Respiratory 20 18 18 Rate Blood Pressure 122/79 110/80 120/74 O2 Sat by Pulse 99 96 99 Oximetry 07/17/19 23:00 Temperature 99.9 F H Pulse Rate 87 Respiratory 18 Rate Blood Pressure 140/87 O2 Sat by Pulse 99 Oximetry EKG Findings - EKG Comments: EKG Findings:: EKG obtained at 1921 shows normal sinus rhythm with a ventricular rate of 90, ME interval 158, QRS duration 88, QT 378, QTC 462. No evidence of ST elevation or depression. Medical Decision Making - Medical Decision Making 24 year-old female patient presents emergency department today for evaluation of palpitations, nausea, and just feeling unwell. Physical examination is unremarkable. She is neurologically intact with no focal deficits. EKG was obtained and showed normal sinus rhythm. Labs reviewed and did reveal elevated potassium of 5.2. Patient also had TSH low at 0.366. Free T4 was normal. No evidence for urinary tract infection. She is not . I did discuss findings and results with the patient. She will be discharged home to follow-up with her primary care physician to discuss thyroid findings and possible heart monitoring. Return parameters were discussed in detail. She verbalizes unders tanding and agrees this plan. - Lab Data Result diagrams: 07/17/19 19:05 07/17/19 19:05 Lab Results 07/17/19 07/17/19 07/17/19 Range/Units 19:05 19:05 19:05 WBC 8.2 (3.8-10.6) k/uL RBC 5.55 H (3.80-5.40) m/uL Hgb 15.9 (11.4-16.0) gm/dL Hct 47.7 H (34.0-46.0) % MCV 85.8 (80.0-100.0) fL MCH 28.6 (25.0-35.0) pg MCHC 33.3 (31.0-37.0) g/dL RDW 14.8 (11.5-15.5) % Plt Count 274 (150-450) k/uL Neutrophils % 89 % Lymphocytes % 8 % Monocytes % 1 % Eosinophils % 1 % Basophils % 0 % Neutrophils # 7.3 (1.3-7.7) k/uL Lymphocytes # 0.7 L (1.0-4.8) k/uL Monocytes # 0.1 (0-1.0) k/uL Eosinophils # 0.1 (0-0.7) k/uL Basophils # 0.0 (0-0.2) k/uL PT 9.6 (9.0-12.0) sec INR 0.9 (<1.2) APTT 23.9 (22.0-30.0) sec D-Dimer 0.30 (<0.60) mg/L FEU Sodium 141 (137-145) mmol/L Potassium 5.2 H (3.5-5.1) mmol/L Chloride 106 (98-107) mmol/L Carbon Dioxide 24 (22-30) mmol/L Anion Gap 11 mmol/L BUN 9 (7-17) mg/dL Creatinine 0.67 (0.52-1.04) mg/dL Est GFR (CKD-EPI)AfAm >90 (>60 ml/min/1.73 sqM) Est GFR (CKD-EPI)NonAf >90 (>60 ml/min/1.73 sqM) Glucose 118 H (74-99) mg/dL Calcium 10.7 H (8.4-10.2) mg/dL Magnesium 2.0 (1.6-2.3) mg/dL Total Bilirubin 0.6 (0.2-1.3) mg/dL AST 50 H (14-36) U/L ALT 52 (9-52) U/L Alkaline Phosphatase 89 (38-126) U/L Troponin I (0.000-0.034) ng/mL Total Protein 8.5 H (6.3-8.2) g/dL Albumin 4.9 (3.5-5.0) g/dL TSH 0.366 L (0.465-4.680) mIU/L Free T4 1.04 (0.78-2.19) ng/dL Urine Color Urine Appearance (Clear) Urine pH (5.0-8.0) Ur Specific [place] (1.001-1.035) Urine Protein (Negative) Urine Glucose (UA) (Negative) Urine Ketones (Negative) Urine Blood (Negative) Urine Nitrite (Negative) Urine Bilirubin (Negative) Urine Urobilinogen (<2.0) mg/dL Ur Leukocyte Esterase (Negative) Urine RBC (0-5) /hpf Urine WBC (0-5) /hpf Ur Squamous Epith Cells (0-4) /hpf Urine Mucus (None) /hpf Urine HCG, Qual (Not Detectd) 07/17/19 07/17/19 07/17/19 Range/Units 19:05 19:05 19:05 WBC (3.8-10.6) k/uL RBC (3.80-5.40) m/uL Hgb (11.4-16.0) gm/dL Hct (34.0-46.0) % MCV (80.0-100.0) fL MCH (25.0-35.0) pg MCHC (31.0-37.0) g/dL RDW (11.5-15.5) % Plt Count (150-450) k/uL Neutrophils % % Lymphocytes % % Monocytes % % Eosinophils % % Basophils % % Neutrophils # (1.3-7.7) k/uL Lymphocytes # (1.0-4.8) k/uL Monocytes # (0-1.0) k/uL Eosinophils # (0-0.7) k/uL Basophils # (0-0.2) k/uL PT (9.0-12.0) sec INR (<1.2) APTT (22.0-30.0) sec D-Dimer (<0.60) mg/L FEU Sodium (137-145) mmol/L Potassium (3.5-5.1) mmol/L Chloride (98-107) mmol/L Carbon Dioxide (22-30) mmol/L Anion Gap mmol/L BUN (7-17) mg/dL Creatinine (0.52-1.04) mg/dL Est GFR (CKD-EPI)AfAm (>60 ml/min/1.73 sqM) Est GFR (CKD-EPI)NonAf (>60 ml/min/1.73 sqM) Glucose (74-99) mg/dL Calcium (8.4-10.2) mg/dL Magnesium (1.6-2.3) mg/dL Total Bilirubin (0.2-1.3) mg/dL AST (14-36) U/L ALT (9-52) U/L Alkaline Phosphatase (38-126) U/L Troponin I <0.012 (0.000-0.034) ng/mL Total Protein (6.3-8.2) g/dL Albumin (3.5-5.0) g/dL TSH (0.465-4.680) mIU/L Free T4 (0.78-2.19) ng/dL Urine Color Yellow Urine Appearance Clear (Clear) Urine pH 8.0 (5.0-8.0) Ur Specific [place] 1.018 (1.001-1.035) Urine Protein Trace H (Negative) Urine Glucose (UA) Negative (Negative) Urine Ketones Negative (Negative) Urine Blood Negative (Negative) Urine Nitrite Negative (Negative) Urine Bilirubin Negative (Negative) Urine Urobilinogen <2.0 (<2.0) mg/dL Ur Leukocyte Esterase Small H (Negative) Urine RBC 1 (0-5) /hpf Urine WBC 7 H (0-5) /hpf Ur Squamous Epith Cells 2 (0-4) /hpf Urine Mucus Few H (None) /hpf Urine HCG, Qual Not Detected (Not Detectd) - Radiology Data Radiology results: report reviewed, image reviewed Two-view x-ray of the chest is obtained. Report was reviewed in its entirety. Impression by Dr. Bravo shows normal chest. No change. Disposition Clinical Impression: Hyperthyroidism, Palpitations, Hyperkalemia Disposition: HOME SELF-CARE Condition: Good Instructions (If sedation given, give patient instructions): Heart Palpitations (ED), Hyperthyroidism (ED), Hyperkalemia (ED) Additional Instructions: Increase fluids. Rest. Follow-up with your primary care physician for recheck in 1-2 days. Discuss findings of hyperthyroidism, discuss possible heart monitoring. Return to the emergency department immediately for any new, worsening, or concerning symptoms. Is patient prescribed a controlled substance at d/c from ED?: No Referrals: Mallory Dyer MD [Primary Care Provider] - 1-2 days Time of Disposition: 22:41
[2019-07-17 22:11] LABS: T4, Free (Free Thyroxine) 1.04 ng/dL (0.78-2.19)
[2019-07-17 23:23] VITALS: BP 140/87; PULSE 87; TEMP 99.9
== END 2019-07-17 23:00 | disposition home or self-care (01) ==
LOC: EC 17:33
DX: E05.90 Thyrotoxicosis, unspecified without thyrotoxic crisis or storm (principal); E87.5 Hyperkalemia; R00.2 Palpitations; Z32.02 Encounter for pregnancy test, result negative; Z79.899 Other long term (current) drug therapy; Z79.3 Long term (current) use of hormonal contraceptives
CPT/HCPCS: 36415; 93005; 85379; 84439; 80053; 84443; 83735; 84484; 85025; 85610; 85730; 81001; 81025; 87086; 71046; 99284; 96374; 96361 ×4; J2405

== ENCOUNTER → 2019-08-07 | Outpatient (CLI) | payer OTHER ==
--- NOTE | 2019-08-07 11:25 | US ---
EXAMINATION TYPE: US thyroid st tissue head/neck DATE OF EXAM: 08/07/2019 COMPARISON: NONE CLINICAL HISTORY: R00.2 Palpitations, R79.89Abn findings blood chem. abn labs GLAND SIZE: Right Lobe: 5.1 x 1.4 x 1.6 cm Overall Parenchyma: homogenous Left Lobe: 4.4 x 1.3 x 1.5 cm Overall Parenchyma: homogeneous Isthmus Thickness: 0.5 cm NODULES RIGHT: # of nodules measured on right: 0 LEFT: # of nodules measured on left: 0 ISTHMUS: # of nodules measured in the isthmus: 0 Bilateral neck scanned, no evidence of lymphadenopathy. Right lobe thyroid appears enlarged in size. IMPRESSION: No distinct nodule identified. Right thyroid lobe enlargement noted.
== END | disposition home or self-care (01) ==
LOC: RADUSWWP 10:49
PROVIDERS: ATTEND Family Medicine
DX: R00.0 Tachycardia, unspecified (principal); R42 Dizziness and giddiness; E04.9 Nontoxic goiter, unspecified; R07.89 Other chest pain
CPT/HCPCS: 76536; 93270

== ENCOUNTER → 2019-09-09 | Outpatient (CLI) | payer OTHER ==
[2019-09-10 13:38] LABS: Thyroid Peroxidase Antibodies <28.0 U/mL (0.0-60.0)
== END | disposition home or self-care (01) ==
LOC: LABWHC1 14:11
PROVIDERS: ATTEND Internal Medicine Endocrinology, Diabetes & Metabolism
DX: E05.90 Thyrotoxicosis, unspecified without thyrotoxic crisis or storm (principal)
CPT/HCPCS: 36415; 84439; 84443; 84445; 84480; 86376

== ENCOUNTER 2020-05-11 13:29 | Outpatient (CLI) | payer OTHER ==
[2020-05-11 14:19] LABS: Appearance,Urine Cloudy (Clear); Bacteria,Urine Rare /hpf; Bilirubin,Urine Negative (Negative); Blood,Urine Negative (Negative); Color,Urine Yellow; Glucose,Urine (UA) Negative (Negative); Ketones,Urine 4+ (Negative); Leukocyte Esterase,Urine Moderate (Negative); Mucus,Urine Many /hpf; Nitrite,Urine Negative (Negative); Protein,Urine 1+ (Negative); RBC,Urine 3 /hpf (0-5); Specific Gravity,Urine 1.024 (1.001-1.035); Squamous Epithelial Cell,Urine 10 /hpf (0-4); Urobilinogen,Urine <2.0 mg/dL (<2.0); WBC,Urine 7 /hpf (0-5)
[2020-05-11] MEDS ORDERED: ONDANSETRON 4 MG/2 ML VIAL IVP STA (14:35)
[2020-05-11] MEDS ORDERED: LACTATED RINGERS 1,000 ML IV SCH ×2 (14:45)
[2020-05-11 16:41] VITALS: BP 124/63; PULSE 96; RESP 18; TEMP 98.1
--- NOTE | 2020-05-12 08:40 | P.MSEPDOC ---
Presenting Problems - Arrival Data Date of Arrival on Unit: 05/11/20 Time of Arrival on Unit: 13:30 Mode of Transport: Wheelchair - Complaint OB-Reason for Admission/Chief Complaint: Acute Nausea/Vomiting Comment: pt presented to triage for n/v around 0300 this am, unable to keep anything down, Medical History - Information : 3 Para: 2 Term: 2 : 0 Abortions: Spontaneous or Elective: 0 Number of Living Children: 2 - Gestational Age Gestational Age by MATTHEW (wks/days): 23 Weeks and 0 Days Review of Systems - Review of Systems Constitutional: No problems Breast: No problems ENT: No problems Cardiovascular: No problems Respiratory: No problems Gastrointestinal: No problems Genitourinary: No problems Musculoskeletal: No problems Neurological: No problems Skin: No problems Vital Signs - Temperature Temperature: 98.1 F Temperature Source: Temporal Artery Scan - Pulse Right Brachial Pulse Rate: 96 - Respirations Respiratory Rate: 18 Oxygen Delivery Method: Room Air - Blood Pressure Right Arm Blood Pressure: 124/63 Blood Pressure Mean: 83 Blood Pressure Source: Automatic Cuff Medical Screen Scoring (Pre) - Cervical Exam Dilation: Exam Deferred Effacement: Exam Deferred Membranes: Intact - Uterine Contractions Frequency: N/A Duration: N/A Intensity: N/A - Maternal Vital Signs Maternal Temperature: N/A Maternal Blood Pressure: N/A Signs of Preeclampsia: N/A Maternal Respirations: N/A - Maternal Trauma Maternal Trauma: N/A - Assessment - Baby A Position: N/A Station: N/A - Total Score - Baby A Total Score - Baby A: 0 - Total Score - Baby B Total Score - Baby B: 0 - Total Score - Baby C Total Score - Baby C: 0 - Level of Risk - Baby A Level of Risk - Baby A: Low (0-5) - Level of Risk - Baby B Level of Risk - Baby B: Low (0-5) - Level of Risk - Baby C Level of Risk - Baby C: Low (0-5) Physician Notification (Pre) - Physician Notified Physician Notified Date: 05/11/20 Physician Notified Time: 14:33 New Order Received: Yes - Notification Comment Comment: UA obtained, given 2 bags of LR, and 1 dose of zofran ivp, orders to discharge pt home when feeling better, follow up in office tomorrow morning, Disposition - Disposition OB Disposition: Triage, Discharge to home, Written follow up instructions reviewed I agree with the RN Medical Screening Exam: Yes Risk & Benefit of care provided described in d/c instruction: Yes Diagnosis: VOMITING OF , UNSPECIFIED
== END 2020-05-11 16:50 | disposition home or self-care (01) ==
LOC: FBPOP 13:29
PROVIDERS: ATTEND Obstetrics & Gynecology
DX: O21.2 Late vomiting of pregnancy (principal); Z3A.23 23 weeks gestation of pregnancy
CPT/HCPCS: 96361; 96374; 81001; G0463; J2405; 99214

== ENCOUNTER 2020-07-09 05:18 | Outpatient (CLI) | payer OTHER ==
[2020-07-09] MEDS ORDERED: LACTATED RINGERS 1,000 ML IV ONE (06:00)
[2020-07-09 06:32] LABS: Basophils % (A) 0 %; Eosinophils # (A) 0.2 k/uL (0-0.7); Eosinophils % (A) 2 %; HGB 11.2 gm/dL (11.4-16.0); Hypochromasia Slight; Lymphocytes # (A) 1.5 k/uL (1.0-4.8); Lymphocytes % (A) 10 %; MCH 26.4 pg (25.0-35.0); MCHC 31.9 g/dL (31.0-37.0); MCV 82.6 fL (80.0-100.0); Mean Platelet Volume 10.1; Monocytes # (A) 0.5 k/uL (0-1.0); Monocytes % (A) 3 %; Neutrophils # (A) 12.4 k/uL (1.3-7.7); Neutrophils % (A) 84 %; Platelet Count 207 k/uL (150-450); RBC 4.24 m/uL (3.80-5.40); RDW 15.2 % (11.5-15.5); WBC 14.9 k/uL (3.8-10.6)
[2020-07-09 06:45] LABS: ALT 12 U/L (4-34); AST 20 U/L (14-36); African American GFR (CKD) >90 (>60 ml/min/1.73 sqM); Albumin 3.4 g/dL (3.5-5.0); Alkaline Phosphatase 120 U/L (38-126); Anion Gap 7 mmol/L; Blood Urea Nitrogen 2 mg/dL (7-17); Calcium 8.9 mg/dL (8.4-10.2); Carbon Dioxide 22 mmol/L (22-30); Chloride 106 mmol/L (98-107); Glucose 91 mg/dL (74-99); Non-African American GFR(CKD) >90 (>60 ml/min/1.73 sqM); Sodium 135 mmol/L (137-145); Total Bilirubin 0.4 mg/dL (0.2-1.3); Total Protein 6.2 g/dL (6.3-8.2)
[2020-07-09] MEDS ORDERED: LACTATED RINGERS 1,000 ML IV SCH (07:15)
[2020-07-09 08:39] LABS: Appearance,Urine Cloudy (Clear); Bacteria,Urine Occasional /hpf; Bilirubin,Urine Negative (Negative); Blood,Urine Negative (Negative); Color,Urine Yellow; Glucose,Urine (UA) Negative (Negative); Ketones,Urine 2+ (Negative); Leukocyte Esterase,Urine Large (Negative); Mucus,Urine Many /hpf; Nitrite,Urine Negative (Negative); Protein,Urine Trace (Negative); RBC,Urine 2 /hpf (0-5); Specific Gravity,Urine 1.016 (1.001-1.035); Squamous Epithelial Cell,Urine 24 /hpf (0-4); Urobilinogen,Urine <2.0 mg/dL (<2.0); WBC,Urine 25 /hpf (0-5)
[2020-07-09 11:03] VITALS: BP 112/61; PULSE 76; RESP 17; TEMP 97.1
--- NOTE | 2020-08-01 10:04 | P.MSEPDOC ---
Presenting Problems - Arrival Data Date of Arrival on Unit: 07/09/20 Time of Arrival on Unit: 05:15 Mode of Transport: Wheelchair - Complaint OB-Reason for Admission/Chief Complaint: Acute Nausea/Vomiting Medical History - Information : 3 Para: 2 - Gestational Age Gestational Age by MATTHEW (wks/days): 31 Weeks and 2 Days Review of Systems - Review of Systems Constitutional: No problems Breast: No problems ENT: No problems Cardiovascular: No problems Respiratory: No problems Gastrointestinal: No problems Genitourinary: No problems Musculoskeletal: No problems Neurological: No problems Skin: No problems Vital Signs - Temperature Temperature: 97.1 F Temperature Source: Temporal Artery Scan - Pulse Right Brachial Pulse Rate: 76 Pulse Assessment Method: Automatic Cuff - Respirations Respiratory Rate: 17 Oxygen Delivery Method: Room Air - Blood Pressure Right Arm Blood Pressure: 112/61 Blood Pressure Mean: 78 Blood Pressure Source: Automatic Cuff Medical Screen Scoring (Pre) - Cervical Exam Dilation: Exam Deferred Effacement: Exam Deferred Membranes: Intact - Uterine Contractions Frequency: N/A Duration: N/A Intensity: N/A - Maternal Vital Signs Maternal Temperature: N/A Signs of Preeclampsia: N/A, Headache = 1 Maternal Respirations: N/A - Maternal Trauma Maternal Trauma: N/A - Assessment - Baby A Baseline FHR: 140 Heart Rate - NICHD Category: Category I (Normal) = 0 NST: Reactive Position: N/A Station: N/A - Total Score - Baby A Total Score - Baby A: 1 - Total Score - Baby B Total Score - Baby B: 1 - Total Score - Baby C Total Score - Baby C: 1 - Level of Risk - Baby A Level of Risk - Baby A: Low (0-5) - Level of Risk - Baby B Level of Risk - Baby B: Low (0-5) - Level of Risk - Baby C Level of Risk - Baby C: Low (0-5) Physician Notification (Pre) - Physician Notified Physician Notified Date: 07/09/20 Physician Notified Time: 07:30 - Notification Comment Comment: treat pt with ivf, obtain labs Medical Screen Scoring (Post) - Cervical Exam Dilation: Exam Deferred Effacement: Exam Deferred Membranes: Intact - Uterine Contractions Frequency: N/A Duration: N/A Intensity: N/A - Maternal Vital Signs Maternal Temperature: N/A Maternal Blood Pressure: N/A Signs of Preeclampsia: N/A Maternal Respirations: N/A - Pain Assessment Pain Scale Used: Numeric (1 - 10) Pain Intensity: 0 - Maternal Trauma Maternal Trauma: N/A - Assessment - Baby A Heart Rate: 140 Heart Rate - NICHD Category: Category I (Normal) = 0 NST: Reactive Station: N/A - Total Score Total Score - Baby A: 0 Total Score - Baby B: 0 Total Score - Baby C: 0 - Post Treatment Level of Risk Post Treatment Level of Risk - Baby A: Low (0-5) Post Treatment Level of Risk - Baby B: Low (0-5) Post Treatment Level of Risk - Baby C: Low (0-5) Physician Notification (Post) - Physician Notified Physician Notified Date: 07/09/20 Physician Notified Time: 10:04 Physician/Practitioner Notified:: Ilia Rubi Spoke With: Ilia Rubi New Order Received: Yes - Notification Comment Comment: cbc, cmp, and ua were obtained and reported, 2 bags of IVF given, pt feeling better and keeping ice chips down Disposition - Disposition OB Disposition: Triage Discharge Date: 07/09/20 Discharge Time: 10:20 I agree with the RN Medical Screening Exam: Yes Risk & Benefit of care provided described in d/c instruction: Yes Diagnosis: NAUSEA WITH VOMITING, UNSPECIFIED
== END 2020-07-09 10:20 | disposition home or self-care (01) ==
LOC: FBPOP 05:18
PROVIDERS: ATTEND Obstetrics & Gynecology
DX: O21.2 Late vomiting of pregnancy (principal); Z3A.31 31 weeks gestation of pregnancy
CPT/HCPCS: 59025; 96360; 96361; 80053; 84443; 85025; 81001; G0463; 99214

== ENCOUNTER 2020-09-01 06:00 | Inpatient (IN) | payer OTHER ==
--- NOTE | 2020-08-31 19:54 | P.HPOB ---
History of Present Illness H&P Date: 08/31/20 Chief Complaint: Induction of labor, gestational diabetes This is a 25 y.o. female, 3, para 2, with an estimated date of confinement of 09/07/2020, estimated gestational age of 39-1/7 weeks, who presents for induction of labor. Her has been complicated by gestational diabetes on insulin. She was not diagnosed until almost 35 weeks and just started on insulin a couple weeks ago. She complains of irregular contractions labs: Hepatitis B surface antigen-neg RPR-NR Rubella-immune Blood type-A+ Antibody screen-neg Hemoglobin-12.5 Toxoplasma-neg Random glucose-91 1 hr. GTT-135; unable to complete 3 hr. GTT GBS-neg OB Hx: . History of 2 vaginal deliveries Validation Leader Hx: No hx of STDs Social Hx: Marries. Unemployed. Review of Systems Constitutional: Denies chills, Denies fever Eyes: denies blurred vision, denies pain Ears, nose, mouth and throat: Denies headache, Denies sore throat Cardiovascular: Denies chest pain, Denies shortness of breath Respiratory: Denies cough Gastrointestinal: Reports abdominal pain (irreg.ctxs.), Reports heartburn, Reports nausea Genitourinary: Reports pelvic pain, Reports Musculoskeletal: Reports low back pain Integumentary: Denies pruritus, Denies rash Neurological: Denies numbness, Denies weakness Psychiatric: Denies anxiety, Denies depression Past Medical History Past Medical History: No Reported History History of Any Multi-Drug Resistant Organisms: None Reported Past Surgical History: Cholecystectomy, Tonsillectomy Past Anesthesia/Blood Transfusion Reactions: No Reported Reaction Past Psychological History: No Psychological Hx Reported Smoking Status: Never smoker Past Alcohol Use History: None Reported Past Drug Use History: None Reported - Past Family History Mother Family Medical History: Chest Pain / Angina Additional Family Medical History / Comment(s): anxity Father Family Medical History: Thyroid Disorder Medications and Allergies Home Medications Medication Instructions Recorded Confirmed Type Omeprazole [PriLOSEC] 20 mg PO AC-BRKFST 06/17/19 07/09/20 History Ondansetron Odt [Zofran Odt] 8 mg PO Q8HR PRN 05/11/20 07/09/20 History Pnv No.95/Ferrous Fum/Folic AC 1 each PO DAILY 07/09/20 07/09/20 History [ Multivitamin Tablet] Allergies Allergy/AdvReac Type Severity Reaction Status Date / Time No Known Allergies Allergy Verified 07/09/20 05:25 Exam Osteopathic Statement: *. No significant issues noted on an osteopathic structural exam other than those noted in the History and Physical/Consult. HEENT: within normal limits Heart: regular rate and rhythm Lungs: clear to auscultation bilaterally Abd: soft, non-tender, Cervix: 3 cm/60%/-2 heart tones: 140's by doppler Extremities: neg. Yoly's. Assessment and Plan (1) Gestational diabetes Status: Acute Code(s): O24.419 - GESTATIONAL DIABETES MELLITUS IN , UNSP CONTROL SNOMED Code(s): 16112723 (2) 39 weeks gestation of Status: Acute Code(s): Z3A.39 - 39 WEEKS GESTATION OF SNOMED Code(s): 30026320 Plan: Admission for oxytocin induction of labor. Expectant management.
[2020-09-01] MEDS ORDERED: LIDOCAINE 1% (10MG/ML) FOR IV START INTRADERMA PRN (06:22)
[2020-09-01] MEDS ORDERED: OXYTOCIN 10 UNIT/ML 1 ML VIAL IM PRN (06:22)
[2020-09-01] MEDS ORDERED: OXYTOCIN 30 UNITS/500 ML NS 30 UNIT in SALINE 1 500ML.BAG IV SCH (06:22)
[2020-09-01] MEDS ORDERED: LIDOCAINE 0.5% (PF) 5 MG/ML (50 ML SDV) SQ PRN (06:22)
[2020-09-01] MEDS ORDERED: TERBUTALINE 1 MG/ML VIAL SQ PRN (06:22)
[2020-09-01] MEDS ORDERED: METHYLERGONOVINE 0.2 MG/ML 1 ML AMP IM PRN (06:22)
[2020-09-01] MEDS ORDERED: CARBOPROST TROMETHAMINE 250 MCG/ML 1 ML AMP IM PRN (06:22)
[2020-09-01 06:27] LABS: Glucose,Whole Blood 88 mg/dL (75-99)
[2020-09-01] MEDS: LACTATED RINGERS 1,000 ML IV SCH ×2 (06:32→11:34)
[2020-09-01] MEDS ORDERED: NON FORMULARY DRUG (Omeprazole 20 MG Capsule.Dr) PO SCH (07:30)
[2020-09-01 07:54] LABS: Glucose,Whole Blood 84 mg/dL (75-99)
[2020-09-01 08:44] LABS: Anisocytosis Slight; Basophils % (A) 0 %; Eosinophils # (A) 0.1 k/uL (0-0.7); Eosinophils % (A) 1 %; HCT 33.6 % (34.0-46.0); HGB 10.3 gm/dL (11.4-16.0); Hypochromasia Marked; Lymphocytes # (A) 1.8 k/uL (1.0-4.8); Lymphocytes % (A) 17 %; MCH 24.5 pg (25.0-35.0); MCHC 30.6 g/dL (31.0-37.0); MCV 79.9 fL (80.0-100.0); Mean Platelet Volume 11.2; Monocytes # (A) 0.5 k/uL (0-1.0); Monocytes % (A) 5 %; Neutrophils # (A) 8.1 k/uL (1.3-7.7); Neutrophils % (A) 76 %; Platelet Count 232 k/uL (150-450); Poikilocytosis Slight; RBC 4.21 m/uL (3.80-5.40); RDW 16.4 % (11.5-15.5); WBC 10.6 k/uL (3.8-10.6)
[2020-09-01] MEDS ORDERED: BUTORPHANOL 1 MG/ML 1 ML VIAL IV PRN (08:47)
[2020-09-01 10:56] LABS: Glucose,Whole Blood 76 mg/dL (75-99)
[2020-09-01] MEDS ORDERED: fentaNYL (PF) 50 MCG/ML 5 ML AMP ONE (11:50)
[2020-09-01] MEDS ORDERED: SODIUM CHLORIDE 0.9% 100 ML BAG ONE (11:50)
[2020-09-01] MEDS ORDERED: ROPIVACAINE 5MG/ML 20ML VIAL ONE (11:50)
--- NOTE | 2020-09-01 13:26 | P.PROBDLV ---
Vaginal Delivery Note - . Vaginal Delivery Note: The patient progressed to complete dilation after oxytocin induction of labor and artificial rupture membranes with clear fluid noted. She did receive epidural anesthesia. Once reaching complete dilation, she began pushing. She pushed for approximately 1 push and the 's head came to a crown. With one further push, the 's head delivered across the perineum in a left occiput anterior lie followed by the anterior shoulder. With one further push, the re mainder the easily delivered reducing nuchal cord times one around the body with delivery. Infant was placed on mother's abdomen. A viable male is noted with scores of 9 at 1 minute and 9 at 5 minutes and infant weight is 8 pounds 0.6 ounces. Placenta delivered shortly thereafter, intact, with a three-vessel cord. Uterus contracted well after oxytocin was given and uterine massage was carried out. Inspection of the perineum revealed no perineal lacerations. Estimated blood loss was approximately 50 mL. Both mother and infant are in stable condition.
[2020-09-01] MEDS ORDERED: SIMETHICONE 80 MG CHEWABLE PO PRN (13:32)
[2020-09-01] MEDS ORDERED: diphenhydrAMINE 50 MG CAP PO PRN (13:32)
[2020-09-01] MEDS ORDERED: diphenhydrAMINE 25 MG CAP PO PRN (13:32)
[2020-09-01] MEDS ORDERED: diphenhydrAMINE 50 MG/ML 1 ML VIAL IVP PRN ×2 (13:32)
[2020-09-01] MEDS ORDERED: ZOLPIDEM 5 MG TAB PO PRN (13:32)
[2020-09-01] MEDS ORDERED: BENZOCAINE/MENTHOL SPRAY 1 GM/SPRAY AEROSOL TOPICAL PRN (13:32)
[2020-09-01] MEDS ORDERED: LANOLIN CREAM 5 GM TUBE TOPICAL PRN (13:32)
[2020-09-01] MEDS ORDERED: HYDROCORTISONE 2.5% RECTAL CREAM 30 GM TUBE RECTAL PRN (13:32)
[2020-09-01] MEDS ORDERED: OXYTOCIN 20 UNITS/1000 ML NS 1,000 ML IV SCH (13:32)
[2020-09-01] MEDS: IBUPROFEN 600 MG TAB PO PRN ×2 (13:57→20:43)
[2020-09-01] MEDS: PRENATAL VIT-IRON-FOLIC ACID 1 EACH CAP PO SCH (16:03)
[2020-09-01 16:04] LABS: Hemoglobin A1C 5.3 % (4.0-6.0)
[2020-09-01] MEDS: ACETAMINOPHEN TAB 325 MG TAB PO PRN (17:31)
[2020-09-01] MEDS: SENNOSIDES-DOCUSATE SODIUM 1 EACH TAB PO SCH (20:43)
[2020-09-02] MEDS: ACETAMINOPHEN TAB 325 MG TAB PO PRN ×2 (03:23→07:52)
[2020-09-02] MEDS: SENNOSIDES-DOCUSATE SODIUM 1 EACH TAB PO SCH (07:55)
[2020-09-02 08:10] LABS: Anisocytosis Slight; Basophils % (A) 0 %; Eosinophils # (A) 0.2 k/uL (0-0.7); Eosinophils % (A) 2 %; HCT 32.1 % (34.0-46.0); HGB 10.2 gm/dL (11.4-16.0); Hypochromasia Marked; Lymphocytes # (A) 1.7 k/uL (1.0-4.8); Lymphocytes % (A) 13 %; MCH 25.1 pg (25.0-35.0); MCV 78.6 fL (80.0-100.0); Mean Platelet Volume 10.3; Microcytosis Slight; Monocytes # (A) 0.6 k/uL (0-1.0); Monocytes % (A) 4 %; Neutrophils # (A) 10.3 k/uL (1.3-7.7); Neutrophils % (A) 79 %; Platelet Count 233 k/uL (150-450); Poikilocytosis Slight; RBC 4.08 m/uL (3.80-5.40); RDW 16.3 % (11.5-15.5); WBC 13.1 k/uL (3.8-10.6)
--- NOTE | 2020-09-02 08:51 | P.DS ---
Providers Date of admission: 09/01/20 06:06 Expected date of discharge: 09/02/20 Attending physician: Liv Burns Primary care physician: Stated None Hospital Course: Gisselle is doing very well day 1. She is ambulating, voiding and she is tolerating a diet. She voices no complaints and is requesting discharge home today. Vital signs are stable and afebrile. Heart regular, lungs clear, extremities without pain. Abdomen soft uterus is firm and lochia is reported to be light. Assessment day 1. Plan discharged home follow up with Dr. Brooks in 6 weeks. Her prescription for Motrin was James for into the pharmacy. Patient Condition at Discharge: Good Plan - Discharge Summary New Discharge Prescriptions: New Ibuprofen [Motrin] 600 mg PO Q6HR PRN #60 tab PRN Reason: Mild Pain Or Fever >= 100.5 Acetaminophen Tab [Tylenol] 650 mg PO Q4HR PRN tab PRN Reason: Mild Pain Or Fever >= 100.5 Continue Pnv No.95/Ferrous Fum/Folic AC [ Multivitamin Tablet] 1 each PO DAILY No Action Ondansetron Odt [Zofran Odt] 8 mg PO Q8HR PRN PRN Reason: Vomiting Discharge Medication List Ondansetron Odt [Zofran Odt] 8 mg PO Q8HR PRN 05/11/20 [History] Pnv No.95/Ferrous Fum/Folic AC [ Multivitamin Tablet] 1 each PO DAILY 07/09/20 [History] Acetaminophen Tab [Tylenol] 650 mg PO Q4HR PRN tab 09/01/20 [Rx] Ibuprofen [Motrin] 600 mg PO Q6HR PRN #60 tab 09/01/20 [Rx] Follow up Appointment(s)/Referral(s): Liv Burns DO [Doctor of Osteopathic Medicine] - 6 Weeks Activity/Diet/Wound Care/Special Instructions: Instructions 1. Do not begin any exercise program for 3 weeks. 2. Do not resume sexual relations for 3 weeks or longer if uncomfortable. 3. You may take tub baths or showers at any time. 4. You may use tampons if desired after 3 weeks. 5. Keep the area of episiotomy (stitches) clean and dry. 6. If you are not nursing, wear a good fitting, supportive bra during the day and limit fluid intake for at least 1 week to prevent breast engorgement. 7. Call the office, [phone], within the next week to make appointment for your 6 week checkup if it has not already been made. 8. Report any of the following occurrences to the doctor promptly: a. Heavy, excessive bleeding b. Chills, fever c. Burning or frequency of urination d. Pain or redness and breasts if nursing e. Increasing pain or swelling in episiotomy (stitches). In addition to the above instructions, the following additional should be followed: 1. No heavy lifting or straining (exercising) until after 6 week checkup. 2. Keep abdominal incision clean and dry: You may wear a dressing if more comfortable. 3. Make office appointment for 10 days after going home or as instructed by her doctor. Discharge Disposition: HOME SELF-CARE
[2020-09-02] MEDS: PRENATAL VIT-IRON-FOLIC ACID 1 EACH CAP PO SCH (09:02)
[2020-09-02] MEDS: IBUPROFEN 600 MG TAB PO PRN (09:43)
[2020-09-02 12:40] VITALS: BP 124/80; PULSE 52; RESP 17; TEMP 97.5
--- NOTE | 2020-09-02 13:11 | P.PN ---
Progress Note - Text Progress Note Date: 09/02/20 Gisselle related earlier this point she had some neck and back pain that apparently had worsened through the morning. She requested a muscle relaxant, but as I do not hours patient left the couple just prescribing that is something for her to go home on. I therefore advised that she could stay and we can have her be thoroughly evaluated with x-rays and she can follow up with Dr. Brooks tomorrow to make decisions on muscle relaxant medications or other therapies.
== END 2020-09-02 14:17 | disposition home or self-care (01) | DRG 807 ==
LOC: 4FBP 06:06
PROVIDERS: ADMIT Obstetrics & Gynecology; ATTEND Obstetrics & Gynecology
PROC: 10E0XZZ Delivery of Products of Conception, External Approach (ICD-10-PCS; principal; 2020-09-01)
PROC: 3E033VJ Introduction of Other Hormone into Peripheral Vein, Percutaneous Approach (ICD-10-PCS; 2020-09-01)
PROC: 10907ZC Drainage of Amniotic Fluid, Therapeutic from Products of Conception, Via Natural or Artificial Opening (ICD-10-PCS; 2020-09-01)
PROC: 3E0R3BZ Introduction of Anesthetic Agent into Spinal Canal, Percutaneous Approach (ICD-10-PCS; 2020-09-01)
DX: O24.424 Gestational diabetes mellitus in childbirth, insulin controlled (principal); Z37.0 Single live birth; O69.81X0 Labor and delivery complicated by cord around neck, without compression, not applicable or unspecified; M54.2 Cervicalgia; M54.9 Dorsalgia, unspecified; O90.89 Other complications of the puerperium, not elsewhere classified; Z3A.39 39 weeks gestation of pregnancy; Z79.899 Other long term (current) drug therapy; Z90.49 Acquired absence of other specified parts of digestive tract; Z98.890 Other specified postprocedural states; Z83.49 Family history of other endocrine, nutritional and metabolic diseases
CPT/HCPCS: 83036; 85025; 86850; 86900; 86901; 88307

== ENCOUNTER 2021-04-28 19:56 | Emergency (ER) | payer OTHER ==
[2021-04-28 20:53] VITALS: RESP 20
[2021-04-28] MEDS ORDERED: ORPHENADRINE 30 MG/ML 2 ML VIAL IM STA (22:08)
[2021-04-28] MEDS ORDERED: KETOROLAC 15 MG/ML 1 ML VIAL IM STA (22:08)
--- NOTE | 2021-04-28 22:17 | ED ---
General Adult HPI - General Chief complaint: Back Pain/Injury Stated complaint: back pain Time Seen by Provider: 04/28/21 22:05 Source: patient, RN notes reviewed Mode of arrival: ambulatory - History of Present Illness Initial comments: 26-year-old female with a past medical history of chronic back pain presents to the emergency room for a chief complaint of low back pain. Patient states she has had pain in the low back for several months and has a disc herniation at L5. She reports she was supposed to get an MRI from orthopedics over 2 weeks ago but they never contacted her. Patient reports she never called to see what was going on with this. Patient states the pain radiates on the left leg. She states today was worse than normal and when she stands up her back spasms. She denies bladder or bowel changes, numbness in the groin or buttock, weakness of the legs, or fever. She reports she did start taking tramadol this morning for [place] [facility] in neurology but it did not help. She last took this about 12 hours ago.Denies any chance of . Patient has no other complaints at this time including shortness of breath, chest pain, abdominal pain, nausea or vomiting, headache, or visual changes. - Related Data Home Medications Medication Instructions Recorded Confirmed Ondansetron Odt [Zofran Odt] 8 mg PO Q8HR PRN 05/11/20 09/01/20 Pnv No.95/Ferrous Fum/Folic AC 1 each PO DAILY 07/09/20 09/01/20 [ Multivitamin Tablet] Previous Rx's Medication Instructions Recorded Acetaminophen Tab [Tylenol] 650 mg PO Q4HR PRN tab 09/01/20 Ibuprofen [Motrin] 600 mg PO Q6HR PRN #60 tab 09/01/20 Cyclobenzaprine [Flexeril] 10 mg PO TID #14 tab 04/28/21 predniSONE 50 mg PO DAILY #5 tablet 04/28/21 Allergies Allergy/AdvReac Type Severity Reaction Status Date / Time No Known Allergies Allergy Verified 04/28/21 20:48 Review of Systems ROS Statement: Those systems with pertinent positive or pertinent negative responses have been documented in the HPI. ROS Other: All systems not noted in ROS Statement are negative. Past Medical History Past Medical History: No Reported History History of Any Multi-Drug Resistant Organisms: None Reported Past Surgical History: Cholecystectomy, Tonsillectomy Past Anesthesia/Blood Transfusion Reactions: No Reported Reaction Past Psychological History: Anxiety, Depression Smoking Status: Never smoker Past Alcohol Use History: None Reported Past Drug Use History: Marijuana - Past Family History Mother Family Medical History: Cancer, Chest Pain / Angina Additional Family Medical History / Comment(s): anxiety, lung cancer Father Family Medical History: Thyroid Disorder General Exam General appearance: alert, in no apparent distress Head exam: Present: atraumatic, normocephalic, normal inspection Eye exam: Present: normal appearance, PERRL, EOMI. Absent: scleral icterus, conjunctival injection, periorbital swelling ENT exam: Present: normal exam, mucous membranes moist Neck exam: Present: normal inspection, full ROM. Absent: tenderness, meningismus, lymphadenopathy Respiratory exam: Present: normal lung sounds bilaterally. Absent: respiratory distress, wheezes, rales, rhonchi, stridor Cardiovascular Exam: Present: regular rate, normal rhythm, normal heart sounds. Absent: systolic murmur, diastolic murmur, rubs, gallop, clicks GI/Abdominal exam: Present: soft, normal bowel sounds. Absent: distended, tenderness, guarding, rebound, rigid Back exam: Absent: CVA tenderness (R), CVA tenderness (L) Neurological exam: Present: alert Course Vital Signs 04/28/21 04/28/21 20:48 22:39 Temperature 97.3 F L Pulse Rate 82 Respiratory 20 Rate Blood Pressure 114/78 O2 Sat by Pulse 98 Oximetry Medical Decision Making - Medical Decision Making Patient presents for mechanical back pain consistent with previous episodes of acute on chronic back pain. She does have disc herniation at L5 with radicular symptoms. No red flags. Patient was given Toradol and Norflex had significant permanent pain. She is able to ambulate without difficulty. Patient will be discharged home with Tylenol 3, Flexeril, and steroids. She will follow-up with her orthopedic surgeon which she is already established and has an upcoming appointment. She will call tomorrow to let them know her pain was worsening. She'll return for any worsening symptoms or Disposition Clinical Impression: Mechanical back pain Disposition: HOME SELF-CARE Condition: Good Instructions (If sedation given, give patient instructions): Acute Low Back Pain (ED) Additional Instructions: Please take steroid as directed. Take Tylenol 3 and Flexeril for pain. Do not drive or operate machinery while taking these. Follow-up with your doctor. Return to the emergency room for any worsening symptoms. Prescriptions: Cyclobenzaprine [Flexeril] 10 mg PO TID #14 tab predniSONE 50 mg PO DAILY #5 tablet Is patient prescribed a controlled substance at d/c from ED?: No Referrals: Mallory Dyer MD [Primary Care Provider] - 1-2 days Time of Disposition: 23:05
[2021-04-28 22:39] VITALS: TEMP 97.3
[2021-04-28] MEDS ORDERED: predniSONE 50 MG TAB PO STA (23:11)
[2021-04-28] MEDS ORDERED: ACET/COD 300 MG/30 MG STARTER PACK 6 TAB BTL PO STA (23:13)
[2021-04-28 23:27] VITALS: BP 122/79; PULSE 73
== END 2021-04-28 23:27 | disposition home or self-care (01) ==
LOC: EC 19:56
DX: M54.5 Low back pain (principal); F41.9 Anxiety disorder, unspecified; F32.9 Major depressive disorder, single episode, unspecified; F12.90 Cannabis use, unspecified, uncomplicated; Z79.1 Long term (current) use of non-steroidal anti-inflammatories (NSAID); Z79.52 Long term (current) use of systemic steroids
CPT/HCPCS: 99283; 96372 ×2; J2360; J1885; J7512

== ENCOUNTER 2022-08-16 22:46 | Emergency (ER) | payer OTHER ==
[2022-08-16 23:35] VITALS: RESP 16; TEMP 98.2
--- NOTE | 2022-08-17 00:03 | XR ---
EXAMINATION TYPE: XR foot complete LT DATE OF EXAM: 08/16/2022 COMPARISON: NONE HISTORY: Fall. Pain TECHNIQUE: 3 view FINDINGS: The metatarsals appear intact. Toes are intact. I see no fracture nor dislocation. The hind foot is intact. IMPRESSION: Negative left foot exam. No fracture seen.
--- NOTE | 2022-08-17 00:05 | XR ---
EXAMINATION TYPE: XR ankle complete LT DATE OF EXAM: 08/16/2022 COMPARISON: NONE HISTORY: Fall. Pain TECHNIQUE: 3 views FINDINGS: Ankle mortise is anatomic. I see no fracture nor dislocation. Joint spaces are normal. IMPRESSION: Negative left ankle exam. No fracture seen.
--- NOTE | 2022-08-17 00:28 | ED ---
Lower Extremity Injury HPI - General Chief Complaint: Extremity Injury, Lower Stated Complaint: Ankle injury Time Seen by Provider: 08/17/22 00:04 Source: patient, RN notes reviewed Mode of arrival: ambulatory Limitations: no limitations - History of Present Illness Initial Comments: This is a pleasant 27-year-old female who presents in respiratory after twisting her left ankle when she stepped off 1 step. Patient states she is having pain to the lateral aspect of the ankle. Denies any distal proximal injuries. No distal paresthesias. Is able to bear weight with some discomfort. No other injuries. No headache, no fever or chills, no changes in vision or hearing, no sore throat or difficulty with speech, no neck pain, no chest pain or shortness of breath, no abdominal pain, no nausea or vomiting, no changes in urination or bowel movements, no numbness or tingling, , no skin rashes or lesions. Past medical, surgical, social, and family history reviewed. - Related Data Home Medications Medication Instructions Recorded Confirmed Ondansetron Odt [Zofran Odt] 8 mg PO Q8HR PRN 05/11/20 09/01/20 Pnv No.95/Ferrous Fum/Folic AC 1 each PO DAILY 07/09/20 09/01/20 [ Multivitamin Tablet] Previous Rx's Medication Instructions Recorded Acetaminophen Tab [Tylenol] 650 mg PO Q4HR PRN tab 09/01/20 Ibuprofen [Motrin] 600 mg PO Q6HR PRN #60 tab 09/01/20 Cyclobenzaprine [Flexeril] 10 mg PO TID #14 tab 04/28/21 predniSONE 50 mg PO DAILY #5 tablet 04/28/21 Allergies Allergy/AdvReac Type Severity Reaction Status Date / Time No Known Allergies Allergy Verified 08/16/22 23:32 Review of Systems ROS Statement: Those systems with pertinent positive or pertinent negative responses have been documented in the HPI. ROS Other: All systems not noted in ROS Statement are negative. Past Medical History Past Medical History: No Reported History History of Any Multi-Drug Resistant Organisms: None Reported Past Surgical History: Cholecystectomy, Tonsillectomy Past Anesthesia/Blood Transfusion Reactions: No Reported Reaction Past Psychological History: Anxiety, Depression Smoking Status: Never smoker Past Alcohol Use History: None Reported Past Drug Use History: Marijuana - Past Family History Mother Family Medical History: Cancer, Chest Pain / Angina Additional Family Medical History / Comment(s): anxiety, lung cancer Father Family Medical History: Thyroid Disorder General Exam Limitations: no limitations General appearance: alert, in no apparent distress Head exam: Present: atraumatic, normocephalic, normal inspection Eye exam: Present: normal appearance, EOMI Neck exam: Present: normal inspection, full ROM Respiratory exam: Present: normal lung sounds bilaterally. Absent: respiratory distress, wheezes, rales, rhonchi, stridor Cardiovascular Exam: Present: regular rate, normal rhythm, normal heart sounds. Absent: systolic murmur, diastolic murmur, rubs, gallop, clicks GI/Abdominal exam: Present: soft. Absent: tenderness Left Upper Leg exam: Present: normal inspection. Absent: tenderness Knee exam: Present: normal inspection, full ROM. Absent: tenderness, swelling Lower Leg exam: Present: normal inspection. Absent: full ROM, swelling Ankle exam: Present: tenderness (Abdomen the ATF ligament), swelling (Lateral aspect). Absent: full ROM (Limited by), abrasion, laceration, ecchymosis, deformity, crepitus, dislocation, erythema, anterior draw sign Foot/Toe exam: Present: normal inspection, full ROM. Absent: tenderness, swelling Neurovascular tendon exam: Present: no vascular compromise. Absent: pulse deficit, abnormal cap refill, motor deficit, sensory deficit, tendon deficit, extremity cold to touch, pallor Gait: antalgic Back exam: Present: normal inspection Neurological exam: Present: alert, oriented X3, CN II-XII intact (Grossly). Absent: motor sensory deficit Psychiatric exam: Present: normal affect, normal mood Course Vital Signs 08/16/22 23:32 Temperature 98.2 F Pulse Rate 87 Respiratory 16 Rate Blood Pressure 129/81 O2 Sat by Pulse 98 Oximetry Procedures - Orthopedic Splinting/Casting Injury #1 Side: left Lower Extremity Injury Location: ankle Lower Extremity Immobilizer: stirrup splint (Distal neurovascular status intact post-application) Medical Decision Making - Medical Decision Making Patient symptomology consistent with a ATF ligament sprain. Patient placed in a stirrup splint. Conservative therapy discussed. RICE therapy discussed. Patient voiced understanding. Patient was told to return to the ER for any signs or symptoms worsen. Told to return immediately if any other problems arise. All questions answered. Treatment plan discussed. Patient in agreement Every effort has been made to ensure accuracy of this dictation. However, due to the limitations of electronic medical records and dictation devices, errors in charting still occur. Patient given follow-up information for orthopedics. Hat Finishing Materials Preparer Dr. Loving - Radiology Data Radiology results: report reviewed, image reviewed (No evidence of acute pathology as reviewed by me.) Disposition Clinical Impression: Sprain of anterior talofibular ligament of left ankle Disposition: HOME SELF-CARE Condition: Good Instructions (If sedation given, give patient instructions): Ankle Sprain (ED), Ankle Stirrup Splint (ED) Additional Instructions: Elevate when possible. Wear the splint as directed. Follow-up with orthopedics if needed. Use [id number] acetaminophen and/or ibuprofen for pain control. Apply ice 20 minutes at a time 4 times daily. Return to the ER immediately if any symptoms worsen, new symptoms arise, or any other problems develop. Is patient prescribed a controlled substance at d/c from ED?: No Referrals: Jung Dennis MD [STAFF PHYSICIAN] - 08/24/22 Time of Disposition: 00:26
[2022-08-17 01:00] VITALS: BP 124/84; PULSE 89
== END 2022-08-17 01:00 | disposition home or self-care (01) ==
LOC: EC 22:46
DX: S93.492A Sprain of other ligament of left ankle, initial encounter (principal); F41.9 Anxiety disorder, unspecified; F32.A Depression, unspecified; F12.90 Cannabis use, unspecified, uncomplicated; Z79.899 Other long term (current) drug therapy; X50.9XXA Other and unspecified overexertion or strenuous movements or postures, initial encounter
CPT/HCPCS: 29515; 99283

== ENCOUNTER 2024-08-30 07:31 | Emergency (ER) | payer OTHER ==
[2024-08-30 07:40] VITALS: TEMP 97.4
--- NOTE | 2024-08-30 07:50 | ED ---
Female Urogenital HPI - General Chief complaint: Vaginal Bleeding Stated complaint: 8 wks preg/vaginal bleeding Time Seen by Provider: 08/30/24 07:41 Source: patient, RN notes reviewed Mode of arrival: ambulatory Limitations: no limitations - History of Present Illness Initial comments: This is a 29-year-old female who presents to the emergency department for vaginal bleeding in . Patient states that earlier this morning about an hour prior to arrival she noticed the bleeding. She had gone into work and when she went to the bathroom she noticed a bunch of clots and bright red blood. She has minor lower abdominal/pelvic cramping. She is approximately 8 weeks and . She has never had bleeding in her prior pregnancies. She was just scheduled for her first appointment with [facility] BALANCE BRID[facility], but has not yet been seen. Denies any nausea or vomiting. MD Complaint: vaginal bleeding Last Menstrual Period: 07/03/24 - Related Data Home Medications Medication Instructions Recorded Confirmed Cefdinir [Omnicef] 300 mg PO Q12HR 01/16/23 01/16/23 Cetirizine HCl [Zyrtec] 10 mg PO DAILY 01/16/23 01/16/23 predniSONE [Deltasone] See Taper PO DIRECTED 01/16/23 01/16/23 Allergies Allergy/AdvReac Type Severity Reaction Status Date / Time No Known Allergies Allergy Verified 01/16/23 14:00 Review of Systems ROS Statement: Those systems with pertinent positive or pertinent negative responses have been documented in the HPI. ROS Other: All systems not noted in ROS Statement are negative. Past Medical History Past Medical History: No Reported History History of Any Multi-Drug Resistant Organisms: None Reported Past Surgical History: Adenoidectomy, Cholecystectomy, Tonsillectomy Past Anesthesia/Blood Transfusion Reactions: No Reported Reaction Past Psychological History: Anxiety, Depression Smoking Status: Never smoker Past Alcohol Use History: None Reported Past Drug Use History: Marijuana - Past Family History Mother Family Medical History: Cancer, Chest Pain / Angina Additional Family Medical History / Comment(s): anxiety, lung cancer Father Family Medical History: Thyroid Disorder General Exam Limitations: no limitations General appearance: alert, in no apparent distress Head exam: Present: atraumatic, normocephalic, normal inspection Respiratory exam: Present: normal lung sounds bilaterally. Absent: respiratory distress, wheezes, rales, rhonchi, stridor Cardiovascular Exam: Present: regular rate, normal rhythm, normal heart sounds. Absent: systolic murmur, diastolic murmur, rubs, gallop, clicks Neurological exam: Present: alert, oriented X3, CN II-XII intact Psychiatric exam: Present: normal affect, normal mood Skin exam: Present: warm, dry, intact, normal color. Absent: rash Course Vital Signs 08/30/24 08/30/24 08/30/24 07:37 09:00 10:35 Temperature 97.4 F L 97.4 F L Pulse Rate 82 88 Respiratory 20 16 16 Rate Blood Pressure 126/56 105/75 128/91 O2 Sat by Pulse 99 99 Oximetry Medical Decision Making - Medical Decision Making This is a 29 year old female who presents to the emergency department for vaginal bleeding in . Was pt. sent in by a medical professional or institution? @ -No Did you speak to anyone other than the patient for history? @ -No Did you review nursing and triage notes? @ -Yes, and I agree, it is accurate with regards to the patient's symptoms. Were old charts reviewed? @ -No Differential Diagnosis? @ -Differential Vaginal Bleeding: Spontaneous , threatened , molar , ectopic , incompetent cervix, placenta previa, uterine rupture, dysfunctional uterine bleeding, hemorrhage, uterine fibroids, malignancy, coagulopathy, PID, cervicitis, adenomyosis, vaginal trauma, this is not meant to be an all- inclusive list. EKG interpreted by me (3pts min.)? @ -Not obtained X-rays interpreted by me (1pt min.)? @ -Not obtained CT interpreted by me (1pt min.)? @ -Not obtained U/S interpreted by me (1pt. min.)? @ -Obstetrics ultrasound obtained. My interpretation identifies no evidence of an IUP. What testing was considered but not performed? (CT, X-rays, U/S, labs)? Why? @ -None What meds were considered but not given? Why? @ -None Did you discuss the management of the patient with other professionals? @ -No Did you reconcile home meds? @ -No Was smoking cessation discussed for >3mins.? @ -No Was critical care preformed (if so, how long)? @ -No Were there social determinants of health that impacted care today? How? (Homelessness, low income, unemployed, alcoholism, drug addiction, transportation, low edu. Level, literacy, decrease access to med. care, group home, rehab)? @ -No Was there de-escalation of care discussed even if they declined? (Discuss DNR or withdrawal of care, Hospice)? @ -No What co-morbidities impacted this encounter? (DM, HTN, Smoking, COPD, CAD, Cancer, CVA, Hep., AIDS, mental health diagnosis, sleep apnea, morbid obesity)? @ -None Was patient admitted / discharged? @ -Discharged. Lab work demonstrates a hemoglobin of 8.3. However, the most recent value we have for comparison is from 2019. She does also have prior values that are lower. She denies any dizziness or lightheadedness. HCG count is undetectable. Obstetrics ultrasound obtained revealing no evidence of an IUP, which is understandable in light of the negative hCG. This was obtained and resulted before the hCG count was even finalized. It is possible that she may not have been at all or she may have had a very early failed and this was simply the patient restarting her menstrual cycle. Advised she discuss these findings with [facility] BRIDGE for further instruction. Patient discharged home in stable condition. Case discussed with ED attending Dr. Higuera. Return precautions reviewed in depth, the patient is instructed to return to the emergency department with any new, worsening, or concerning symptoms. Patient verbalized understanding. Undiagnosed new problem with uncertain prognosis? @ -None Drug Therapy requiring intensive monitoring for toxicity (Heparin, Nitro, Insul in, Cardizem)? @ -None Were any procedures done? @ -None Diagnosis/symptom? @ -Vaginal bleeding Acute, or Chronic, or Acute on Chronic? @ -Acute Uncomplicated (without systemic symptoms) or Complicated (systemic symptoms)? @ -Uncomplicated Side effects of treatment? @ -None Exacerbation, Progression, or Severe Exacerbation] @ -Not applicable Poses a threat to life or bodily function? @ -No - Lab Data Result diagrams: 08/30/24 08:06 08/30/24 08:06 Lab Results 08/30/24 08/30/24 08/30/24 Range/Units 08:02 08:06 08:06 WBC 5.3 (3.8-10.6) k/uL RBC 4.60 (3.80-5.40) m/uL Hgb 8.3 L (11.4-16.0) gm/dL Hct 29.7 L (34.0-46.0) % MCV 64.6 L (80.0-100.0) fL MCH 18.0 L (25.0-35.0) pg MCHC 27.8 L (31.0-37.0) g/dL RDW 18.4 H (11.5-15.5) % Plt Count 340 (150-450) k/uL MPV 8.6 Neutrophils % 62 % Lymphocytes % 28 % Monocytes % 6 % Eosinophils % 1 % Basophils % 0 % Neutrophils # 3.3 (1.3-7.7) k/uL Lymphocytes # 1.5 (1.0-4.8) k/uL Monocytes # 0.3 (0-1.0) k/uL Eosinophils # 0.1 (0-0.7) k/uL Basophils # 0.0 (0-0.2) k/uL Hypochromasia Marked Anisocytosis Slight Microcytosis Marked Sodium (137-145) mmol/L Potassium (3.5-5.1) mmol/L Chloride (98-107) mmol/L Carbon Dioxide (22-30) mmol/L Anion Gap mmol/L BUN (7-17) mg/dL Creatinine (0.52-1.04) mg/dL Est GFR (CKD-EPI)AfAm (>60 ml/min/1.73 sqM) Est GFR (CKD-EPI)NonAf (>60 ml/min/1.73 sqM) Glucose (74-99) mg/dL Calcium (8.4-10.2) mg/dL Total Bilirubin (0.2-1.3) mg/dL AST (14-36) U/L ALT (4-34) U/L Alkaline Phosphatase (38-126) U/L Total Protein (6.3-8.2) g/dL Albumin (3.5-5.0) g/dL HCG, Quant mIU/mL Urine Color Yellow Urine Appearance Cloudy H (Clear) Urine pH 8.0 (5.0-8.0) Ur Specific Mikana 1.008 (1.001-1.035) Urine Protein 1+ H (Negative) Urine Glucose (UA) Negative (Negative) Urine Ketones Negative (Negative) Urine Blood Large H (Negative) Urine Nitrite Negative (Negative) Urine Bilirubin Negative (Negative) Urine Urobilinogen <2.0 (<2.0) mg/dL Ur Leukocyte Esterase Small H (Negative) Urine RBC 133 H (0-5) /hpf Urine WBC 13 H (0-5) /hpf Ur Squamous Epith Cells 5 H (0-4) /hpf Urine Bacteria Rare H (None) /hpf Blood Type A Positive Blood Type Recheck A Pos Bld Type Recheck Status ABR ONLY 08/30/24 Range/Units 08:06 WBC (3.8-10.6) k/uL RBC (3.80-5.40) m/uL Hgb (11.4-16.0) gm/dL Hct (34.0-46.0) % MCV (80.0-100.0) fL MCH (25.0-35.0) pg MCHC (31.0-37.0) g/dL RDW (11.5-15.5) % Plt Count (150-450) k/uL MPV Neutrophils % % Lymphocytes % % Monocytes % % Eosinophils % % Basophils % % Neutrophils # (1.3-7.7) k/uL Lymphocytes # (1.0-4.8) k/uL Monocytes # (0-1.0) k/uL Eosinophils # (0-0.7) k/uL Basophils # (0-0.2) k/uL Hypochromasia Anisocytosis Microcytosis Sodium 139 (137-145) mmol/L Potassium 4.2 (3.5-5.1) mmol/L Chloride 109 H (98-107) mmol/L Carbon Dioxide 24 (22-30) mmol/L Anion Gap 6 mmol/L BUN 8 (7-17) mg/dL Creatinine 0.58 (0.52-1.04) mg/dL Est GFR (CKD-EPI)AfAm >90 (>60 ml/min/1.73 sqM) Est GFR (CKD-EPI)NonAf >90 (>60 ml/min/1.73 sqM) Glucose 96 (74-99) mg/dL Calcium 9.2 (8.4-10.2) mg/dL Total Bilirubin 0.4 (0.2-1.3) mg/dL AST 56 H (14-36) U/L ALT 75 H (4-34) U/L Alkaline Phosphatase 80 (38-126) U/L Total Protein 6.3 (6.3-8.2) g/dL Albumin 3.7 (3.5-5.0) g/dL HCG, Quant <2.4 mIU/mL Urine Color Urine Appearance (Clear) Urine pH (5.0-8.0) Ur Specific Mikana (1.001-1.035) Urine Protein (Negative) Urine Glucose (UA) (Negative) Urine Ketones (Negative) Urine Blood (Negative) Urine Nitrite (Negative) Urine Bilirubin (Negative) Urine Urobilinogen (<2.0) mg/dL Ur Leukocyte Esterase (Negative) Urine RBC (0-5) /hpf Urine WBC (0-5) /hpf Ur Squamous Epith Cells (0-4) /hpf Urine Bacteria (None) /hpf Blood Type Blood Type Recheck Bld Type Recheck Status - Radiology Data Radiology results: report reviewed, image reviewed Disposition Clinical Impression: Vaginal bleeding Disposition: HOME SELF-CARE Additional Instructions: Return to the emergency department with any new, worsening, or concerning symptoms. Follow-up with [facility]. Is patient prescribed a controlled substance at d/c from ED?: No Referrals: Mallory Dyer MD [Primary Care Provider] - 1-2 days Time of Disposition: 10:27
--- NOTE | 2024-08-30 08:30 | US ---
EXAMINATION TYPE: Transabdominal DATE OF EXAM: 08/30/2024 8:18 AM COMPARISON: NONE CLINICAL INDICATION: Female, 29 years old with history of Vaginal bleeding in ; bleeding TECHNIQUE: Transabdominal (TA) with grayscale and color Doppler imaging including first trimester pre gnancy. FINDINGS: EXAM MEASUREMENTS: GESTATIONAL AGE / DATING Physician Established: Not yet established Dates by LMP: (8 weeks/2 days) EDC: 04/09/2025 Dates by First Scan: No previous this is first scan Dates by Current Scan for: No IUP seen at this time MATERNAL ANATOMY Uterus: 8.0 x 4.0 x 4.5 cm Right Ovary: 2.3 x 1.8 x .8 cm Left Ovary: 2.6 x 1.4 x 2.3 cm Post CDS / Adnexa: wnl Presence of free fluid: no Presence of corpus luteal cyst: no Presence of subchorionic bleed: no GESTATION / SURVEY IUP: No IUP seen at this time Beta HcG (if available): Not available at this time IMPRESSION: 1. No intrauterine 2. Cannot exclude early ectopic and short-term follow-up is recommended with correlation wi th the beta hCG. [facility], , 08/30/2024 8:28 AM
[2024-08-30 08:44] LABS: Anisocytosis Slight; Basophils % (A) 0 %; Eosinophils # (A) 0.1 k/uL (0-0.7); Eosinophils % (A) 1 %; HCT 29.7 % (34.0-46.0); HGB 8.3 gm/dL (11.4-16.0); Hypochromasia Marked; Lymphocytes # (A) 1.5 k/uL (1.0-4.8); Lymphocytes % (A) 28 %; MCHC 27.8 g/dL (31.0-37.0); MCV 64.6 fL (80.0-100.0); Mean Platelet Volume 8.6; Microcytosis Marked; Monocytes # (A) 0.3 k/uL (0-1.0); Monocytes % (A) 6 %; Neutrophils # (A) 3.3 k/uL (1.3-7.7); Neutrophils % (A) 62 %; Platelet Count 340 k/uL (150-450); RDW 18.4 % (11.5-15.5); WBC 5.3 k/uL (3.8-10.6)
[2024-08-30 09:06] VITALS: RESP 16
[2024-08-30 09:06] LABS: ALT 75 U/L (4-34); AST 56 U/L (14-36); African American GFR (CKD) >90 (>60 ml/min/1.73 sqM); Albumin 3.7 g/dL (3.5-5.0); Alkaline Phosphatase 80 U/L (38-126); Anion Gap 6 mmol/L; Blood Urea Nitrogen 8 mg/dL (7-17); Calcium 9.2 mg/dL (8.4-10.2); Carbon Dioxide 24 mmol/L (22-30); Chloride 109 mmol/L (98-107); Glucose 96 mg/dL (74-99); Non-African American GFR(CKD) >90 (>60 ml/min/1.73 sqM); Potassium 4.2 mmol/L (3.5-5.1); Sodium 139 mmol/L (137-145); Total Bilirubin 0.4 mg/dL (0.2-1.3); Total Protein 6.3 g/dL (6.3-8.2)
[2024-08-30 09:22] LABS: HCG,Quantitative Serum <2.4 mIU/mL
[2024-08-30 10:14] LABS: Appearance,Urine Cloudy (Clear); Bacteria,Urine Rare /hpf; Bilirubin,Urine Negative (Negative); Blood,Urine Large (Negative); Color,Urine Yellow; Glucose,Urine (UA) Negative (Negative); Ketones,Urine Negative (Negative); Leukocyte Esterase,Urine Small (Negative); Nitrite,Urine Negative (Negative); Protein,Urine 1+ (Negative); RBC,Urine 133 /hpf (0-5); Specific Gravity,Urine 1.008 (1.001-1.035); Squamous Epithelial Cell,Urine 5 /hpf (0-4); Urobilinogen,Urine <2.0 mg/dL (<2.0); WBC,Urine 13 /hpf (0-5)
[2024-08-30 10:39] VITALS: BP 128/91; PULSE 88
== END 2024-08-30 10:39 | disposition home or self-care (01) ==
LOC: EC 07:31
CPT/HCPCS: 36415; 76801; 80053; 81001; 84702; 85025; 86900; 86901; 87086; 99284

== ENCOUNTER 2024-11-16 20:30 | Emergency (ER) | payer OTHER ==
--- NOTE | 2024-11-16 20:48 | ED ---
Abdominal Pain HPI - General Source: patient, RN notes reviewed Mode of arrival: ambulatory Limitations: no limitations - History of Present Illness MD Complaint: abdominal pain Onset/Timin -: hour(s) <Yann Patel - Last Filed: 11/16/24 20:46> <Devin Crain - Last Filed: 11/17/24 00:21> - General Stated Complaint: abd pain Time Seen by Provider: 11/16/24 20:42 - History of Present Illness Initial Comments: Quick note: This is a 39-year-old female presenting with diffuse abdominal pain x 1.5 hours. Patient states pain is constant, radiating to back, described as stabbing/pressure/bloating. States pain is worse with standing (9/10) and slightly relieved when sitting (7/10). Denies fever, chills, chest pain, dyspnea, N/V/D, dizziness. (Yann Patel) 29-year-old female presenting for evaluation of upper abdominal pain. Symptoms have been present only today. These symptoms are significantly improved at the time my evaluation. No nausea or vomiting. No fever. No changes in bowels. No urinary symptoms. Prior history of cholecystectomy. (Devin Crain) - Related Data Home Medications Medication Instructions Recorded Confirmed Cefdinir [Omnicef] 300 mg PO Q12HR 01/16/23 01/16/23 Cetirizine HCl [Zyrtec] 10 mg PO DAILY 01/16/23 01/16/23 predniSONE [Deltasone] See Taper PO DIRECTED 01/16/23 01/16/23 Allergies Allergy/AdvReac Type Severity Reaction Status Date / Time No Known Allergies Allergy Verified 11/16/24 20:57 Review of Systems ROS Other: All systems not noted in ROS Statement are negative. <Yann Patel - Last Filed: 11/16/24 20:46> ROS Other: All systems not noted in ROS Statement are negative. <Devin Crain - Last Filed: 11/17/24 00:21> ROS Statement: Those systems with pertinent positive or pertinent negative responses have been documented in the HPI. Past Medical History Past Medical History: No Reported History History of Any Multi-Drug Resistant Organisms: None Reported Past Surgical History: Adenoidectomy, Cholecystectomy, Tonsillectomy Past Anesthesia/Blood Transfusion Reactions: No Reported Reaction Past Psychological History: Anxiety, Depression Smoking Status: Never smoker Past Alcohol Use History: None Reported Past Drug Use History: Marijuana - Past Family History Mother Family Medical History: Cancer, Chest Pain / Angina Additional Family Medical History / Comment(s): anxiety, lung cancer Father Family Medical History: Thyroid Disorder <Yann Patel - Last Filed: 11/16/24 20:46> General Exam <Yann Patel - Last Filed: 11/16/24 20:46> General appearance: alert, in no apparent distress Head exam: Present: atraumatic, normocephalic Eye exam: Present: normal appearance, PERRL ENT exam: Present: normal exam Neck exam: Present: normal inspection. Absent: tenderness, meningismus Respiratory exam: Present: normal lung sounds bilaterally. Absent: respiratory distress, wheezes Cardiovascular Exam: Present: regular rate, normal rhythm GI/Abdominal exam: Present: soft, tenderness (Mild epigastric). Absent: distended Neurological exam: Present: alert, oriented X3, CN II-XII intact. Absent: motor sensory deficit Psychiatric exam: Present: normal affect, normal mood Skin exam: Present: warm, dry, intact. Absent: cyanosis, diaphoretic <Devin Crain - Last Filed: 11/17/24 00:21> - General Exam Comments Initial Comments: Visual Physical Exam Vital signs reviewed General: Well-appearing, nontoxic, no acute distress. Head: Normocephalic, atraumatic Eyes: PERRLA, EOMI ENT: Airway patent Chest: Nonlabored breathing Skin: No visual rash, normal skin tone Neuro: Alert and oriented 3 Musculoskeletal: No gross abnormalities (Yann Patel) Course Vital Signs 11/16/24 20:55 Temperature 98.2 F Pulse Rate 100 Respiratory 18 Rate Blood Pressure 132/88 O2 Sat by Pulse 100 Oximetry Medical Decision Making <Yann Patel - Last Filed: 11/16/24 20:46> - Lab Data Result diagrams: 11/16/24 21:18 11/16/24 21:18 <Devin Crain - Last Filed: 11/17/24 00:21> - Medical Decision Making I completed the quick note portion of this chart signed KAL Benton (Yann Patel) Was pt. sent in by a medical professional or institution ([facility]ILLE Londono, GLO[employer] SALES MANAGER, urgent care, hospital, or care home...) When possible be specific @ -No Did you speak to anyone other than the patient for history (EMS, parent, family, police, friend...)? What history was obtained from this source @ -No Did you review nursing and triage notes (agree or disagree)? Why? @ -I reviewed and agree with nursing and triage notes Were old charts reviewed (outside hosp., previous admission, EMS record, old EKG, old radiological studies, urgent care reports/EKG's, care home records)? Report findings @ -No old charts were reviewed Differential Abdominal Pain Women: Appendicitis, Cholecystitis, diverticulosis, ischemic bowel, pancreatitis, hepatitis, UTI, gastroenteritis, AAA, incarcerated hernia, bowel obstruction, constipation, inflammatory bowel, hepatitis, peptic ulcer disease, splenic infarction, perforated viscus, vulvitis, ovarian torsion, PID, kidney stone, placenta abruption, this is not meant to be an all-inclusive list EKG interpreted by me (3pts min.). @ -As above X-rays interpreted by me (1pt min.). @ -None done CT interpreted by me (1pt min.). @ -CT ab/pelvis negative for acute findings U/S interpreted by me (1pt. min.). @ -None done What testing was considered but not performed or refused? (CT, X-rays, U/S, labs)? Why? @ -None What meds were considered but not given or refused? Why? @ -None Did you discuss the management of the patient with other professionals (professionals i.e. CAMILLE Londono, GLOBAL SALES MANAGER, lab, RT, psych nurse, social sciences chair, site surveyor, teacher, ethics officer, case repairer)? Give summary @ -No Was smoking cessation discussed for >3mins.? @ -No Was critical care preformed (if so, how long)? @ -No Were there social determinants of health that impacted care today? How? (Homelessness, low income, unemployed, alcoholism, drug addiction, transportation, low edu. Level, literacy, decrease access to med. care, senior care, rehab)? @ -No Was there de-escalation of care discussed even if they declined (Discuss DNR or withdrawal of care, Hospice)? DNR status @ -No What co-morbidities impacted this encounter? (DM, HTN, Smoking, COPD, CAD, Cancer, CVA, ARF, Chemo, Hep., AIDS, mental health diagnosis, sleep apnea, morbid obesity)? @ -None Was patient admitted / discharged? Hospital course, mention meds given and route, prescriptions, significant lab abnormalities, going to OR and other pertinent info. @ 29 yo presenting with an episode of upper abdominal pain. Pain improved at the time my evaluation. Vital signs stable. Patient has chronic stable anemia, otherwise normal laboratory testing, negative CT abdomen pelvis. Patient given return parameters and will follow-up with primary care provider. Undiagnosed new problem with uncertain prognosis? @ -No Drug Therapy requiring intensive monitoring for toxicity (Heparin, Nitro, Insulin, Cardizem)? @ -No Were any procedures done? @ -No Diagnosis/symptom? @ -Abdominal pain Acute, or Chronic, or Acute on Chronic? @ -acute Uncomplicated (without systemic symptoms) or Complicated (systemic symptoms)? @ -Default Side effects of treatment? @ -No Exacerbation, Progression, or Severe Exacerbation? @ -No Poses a threat to life or bodily function? How? (Chest pain, [place], AR, pneumonia, PE, COPD, DKA, ARF, appy, cholecystitis, CVA, Diverticulitis, Homicidal, Suicidal, threat to staff... and all critical care pts) @ -No (Devin Crain) - Lab Data Lab Results 11/16/24 11/16/24 11/16/24 Range/Units 21:18 21:18 21:18 WBC 5.7 (3.8-10.6) k/uL RBC 4.92 (3.80-5.40) m/uL Hgb 8.6 L (11.4-16.0) gm/dL Hct 30.4 L (34.0-46.0) % MCV 61.8 L (80.0-100.0) fL MCH 17.5 L (25.0-35.0) pg MCHC 28.4 L (31.0-37.0) g/dL RDW 17.2 H (11.5-15.5) % Plt Count 208 (150-450) k/uL MPV 6.9 Neutrophils % 73 % Lymphocytes % 18 % Monocytes % 5 % Eosinophils % 1 % Basophils % 0 % Neutrophils # 4.2 (1.3-7.7) k/uL Lymphocytes # 1.1 (1.0-4.8) k/uL Monocytes # 0.3 (0-1.0) k/uL Eosinophils # 0.1 (0-0.7) k/uL Basophils # 0.0 (0-0.2) k/uL Hypochromasia Marked Poikilocytosis Slight Anisocytosis Slight Microcytosis Marked Sodium 138 (137-145) mmol/L Potassium 3.7 (3.5-5.1) mmol/L Chloride 106 (98-107) mmol/L Carbon Dioxide 23 (22-30) mmol/L Anion Gap 9 mmol/L BUN 9 (7-17) mg/dL Creatinine 0.62 (0.52-1.04) mg/dL Est GFR (CKD-EPI)AfAm >90 (>60 ml/min/1.73 sqM) Est GFR (CKD-EPI)NonAf >90 (>60 ml/min/1.73 sqM) Glucose 103 H (74-99) mg/dL Plasma Lactic Acid Nicholas 0.8 (0.7-2.0) mmol/L Calcium 8.6 (8.4-10.2) mg/dL Total Bilirubin 0.2 (0.2-1.3) mg/dL AST 107 H (14-36) U/L ALT 108 H (4-34) U/L Alkaline Phosphatase 97 (38-126) U/L Total Protein 6.9 (6.3-8.2) g/dL Albumin 4.2 (3.5-5.0) g/dL Amylase 59 (30-110) U/L Lipase 109 (23-300) U/L Urine Color Urine Appearance (Clear) Urine pH (5.0-8.0) Ur Specific Brohard (1.001-1.035) Urine Protein (Negative) Urine Glucose (UA) (Negative) Urine Ketones (Negative) Urine Blood (Negative) Urine Nitrite (Negative) Urine Bilirubin (Negative) Urine Urobilinogen (<2.0) mg/dL Ur Leukocyte Esterase (Negative) Urine RBC (0-5) /hpf Urine WBC (0-5) /hpf Ur Squamous Epith Cells (0-4) /hpf Urine Bacteria (None) /hpf Urine Mucus (None) /hpf Urine Yeast (Budding) (None) /hpf Urine HCG, Qual (Not Detectd) 11/16/24 11/16/24 Range/Units 21:23 21:23 WBC (3.8-10.6) k/uL RBC (3.80-5.40) m/uL Hgb (11.4-16.0) gm/dL Hct (34.0-46.0) % MCV (80.0-100.0) fL MCH (25.0-35.0) pg MCHC (31.0-37.0) g/dL RDW (11.5-15.5) % Plt Count (150-450) k/uL MPV Neutrophils % % Lymphocytes % % Monocytes % % Eosinophils % % Basophils % % Neutrophils # (1.3-7.7) k/uL Lymphocytes # (1.0-4.8) k/uL Monocytes # (0-1.0) k/uL Eosinophils # (0-0.7) k/uL Basophils # (0-0.2) k/uL Hypochromasia Poikilocytosis Anisocytosis Microcytosis Sodium (137-145) mmol/L Potassium (3.5-5.1) mmol/L Chloride (98-107) mmol/L Carbon Dioxide (22-30) mmol/L Anion Gap mmol/L BUN (7-17) mg/dL Creatinine (0.52-1.04) mg/dL Est GFR (CKD-EPI)AfAm (>60 ml/min/1.73 sqM) Est GFR (CKD-EPI)NonAf (>60 ml/min/1.73 sqM) Glucose (74-99) mg/dL Plasma Lactic Acid Nicholas (0.7-2.0) mmol/L Calcium (8.4-10.2) mg/dL Total Bilirubin (0.2-1.3) mg/dL AST (14-36) U/L ALT (4-34) U/L Alkaline Phosphatase (38-126) U/L Total Protein (6.3-8.2) g/dL Albumin (3.5-5.0) g/dL Amylase (30-110) U/L Lipase (23-300) U/L Urine Color Yellow Urine Appearance Cloudy H (Clear) Urine pH 5.5 (5.0-8.0) Ur Specific Brohard 1.033 (1.001-1.035) Urine Protein Trace H (Negative) Urine Glucose (UA) Negative (Negative) Urine Ketones Negative (Negative) Urine Blood Negative (Negative) Urine Nitrite Negative (Negative) Urine Bilirubin Negative (Negative) Urine Urobilinogen <2.0 (<2.0) mg/dL Ur Leukocyte Esterase Large H (Negative) Urine RBC 2 (0-5) /hpf Urine WBC 21 H (0-5) /hpf Ur Squamous Epith Cells 12 H (0-4) /hpf Urine Bacteria Occasional H (None) /hpf Urine Mucus Moderate H (None) /hpf Urine Yeast (Budding) Rare H (None) /hpf Urine HCG, Qual Not Detected (Not Detectd) Disposition <Yann Patel - Last Filed: 11/16/24 20:46> Is patient prescribed a controlled substance at d/c from ED?: No Time of Disposition: 00:21 <Devin Crain - Last Filed: 11/17/24 00:21> Clinical Impression: Abdominal pain Disposition: HOME SELF-CARE Condition: Good Instructions (If sedation given, give patient instructions): Abdominal Pain (ED) Referrals: Mallory Dyer MD [Primary Care Provider] - 1-2 days
[2024-11-16 20:57] VITALS: RESP 18
[2024-11-16 21:30] LABS: Anisocytosis Slight; Basophils % (A) 0 %; Eosinophils # (A) 0.1 k/uL (0-0.7); Eosinophils % (A) 1 %; HCT 30.4 % (34.0-46.0); HGB 8.6 gm/dL (11.4-16.0); Hypochromasia Marked; Lymphocytes # (A) 1.1 k/uL (1.0-4.8); Lymphocytes % (A) 18 %; MCH 17.5 pg (25.0-35.0); MCHC 28.4 g/dL (31.0-37.0); MCV 61.8 fL (80.0-100.0); Mean Platelet Volume 6.9; Microcytosis Marked; Monocytes # (A) 0.3 k/uL (0-1.0); Monocytes % (A) 5 %; Neutrophils # (A) 4.2 k/uL (1.3-7.7); Neutrophils % (A) 73 %; Platelet Count 208 k/uL (150-450); Poikilocytosis Slight; RBC 4.92 m/uL (3.80-5.40); RDW 17.2 % (11.5-15.5); WBC 5.7 k/uL (3.8-10.6)
[2024-11-16 21:59] LABS: ALT 108 U/L (4-34); AST 107 U/L (14-36); African American GFR (CKD) >90 (>60 ml/min/1.73 sqM); Albumin 4.2 g/dL (3.5-5.0); Alkaline Phosphatase 97 U/L (38-126); Amylase 59 U/L (30-110); Anion Gap 9 mmol/L; Blood Urea Nitrogen 9 mg/dL (7-17); Calcium 8.6 mg/dL (8.4-10.2); Carbon Dioxide 23 mmol/L (22-30); Chloride 106 mmol/L (98-107); Glucose 103 mg/dL (74-99); Lipase 109 U/L (23-300); Non-African American GFR(CKD) >90 (>60 ml/min/1.73 sqM); Potassium 3.7 mmol/L (3.5-5.1); Sodium 138 mmol/L (137-145); Total Bilirubin 0.2 mg/dL (0.2-1.3); Total Protein 6.9 g/dL (6.3-8.2)
[2024-11-16 22:08] LABS: Appearance,Urine Cloudy (Clear); Bacteria,Urine Occasional /hpf; Bilirubin,Urine Negative (Negative); Blood,Urine Negative (Negative); Budding Yeast,Urine Rare /hpf; Color,Urine Yellow; Glucose,Urine (UA) Negative (Negative); Ketones,Urine Negative (Negative); Leukocyte Esterase,Urine Large (Negative); Mucus,Urine Moderate /hpf; Nitrite,Urine Negative (Negative); PH, Urine 5.5 (5.0-8.0); Protein,Urine Trace (Negative); RBC,Urine 2 /hpf (0-5); Specific Gravity,Urine 1.033 (1.001-1.035); Squamous Epithelial Cell,Urine 12 /hpf (0-4); Urobilinogen,Urine <2.0 mg/dL (<2.0); WBC,Urine 21 /hpf (0-5)
--- NOTE | 2024-11-17 00:10 | CT ---
EXAM: CT Abdomen and Pelvis With Intravenous Contrast CLINICAL HISTORY: ITS.REASON CT Reason: Abdominal pain TECHNIQUE: Axial computed tomography images of the abdomen and pelvis with intravenous contrast. CTDI is 27.3 mGy and DLP is 1225.8 mGy-cm. This CT exam was performed using one or more of the following dose reduction techniques: automated exposure control, adjustment of the mA and/or kV according to patient size, and/or use of iterative reconstruction technique. COMPARISON: 06/17/19 FINDINGS: Lung bases: Unremarkable. ABDOMEN: Liver: Unremarkable. No mass. Gallbladder and bile ducts: Cholecystectomy. No ductal dilation. Pancreas: Unremarkable. No mass. No ductal dilation. Spleen: Unremarkable. No splenomegaly. Adrenals: Unremarkable. No mass. Kidneys and ureters: Unremarkable. No solid mass. No hydronephrosis. Stomach and bowel: Unremarkable. No obstruction. No mucosal thickening. PELVIS: Appendix: Normal appendix. Bladder: Unremarkable. No mass. Reproductive: Unremarkable as visualized. ABDOMEN and PELVIS: Intraperitoneal space: Unremarkable. No free air, significant free fluid, or fluid collection. Bones/joints: No acute fracture. No dislocation. Disc and facet degeneration at L5-S1 with bilateral foraminal narrowing. Soft tissues: Tiny fat-containing umbilical hernia. Vasculature: Unremarkable. No abdominal aortic aneurysm. Lymph nodes: Unremarkable. No enlarged lymph nodes. IMPRESSION: No acute findings in the abdomen or pelvis.
[2024-11-17 00:44] VITALS: BP 135/78; PULSE 77; TEMP 98
== END 2024-11-17 00:43 | disposition home or self-care (01) ==
LOC: EC 20:30
DX: R10.13 Epigastric pain (principal)
CPT/HCPCS: 36415; 80053; 82150; 83605; 83690; 85025; 81001; 81025; 87086; 74177; 99284; Q9967

== ENCOUNTER 2024-12-15 12:39 | Emergency (ER) | payer OTHER ==
[2024-12-15 12:45] VITALS: TEMP 98.1
--- NOTE | 2024-12-15 13:28 | ED ---
Female Urogenital HPI - General Source: patient, RN notes reviewed, old records reviewed Mode of arrival: ambulatory Limitations: no limitations <Jessica Vora - Last Filed: 12/15/24 15:03> <Macie Adam - Last Filed: 12/15/24 19:39> - General Chief complaint: Vaginal Bleeding Stated complaint: Dizziness Time Seen by Provider: 12/15/24 13:26 - History of Present Illness Initial comments: 29-year-old female presented the ER for evaluation of vaginal bleeding. Patient reports she has a history of iron deficiency anemia for which she has received 2 iron infusions over the past 2 weeks. Patient states she started her menstrual cycle yesterday which is very heavy. She states she goes through a super tampon and pad every 1.5 to 2 hours. Patient states this is very typical of her menstrual cycles and she is attempting to get into a candy cutter hand for further evaluation. Patient states while at work today she started to feel unwell, dizzy, lightheadedness and with hot and cold flashes. Patient is concerned her levels may be low again. Patient is not on any blood thinners. She denies any fevers, cough, congestion, chest pain, urinary complaints, constipation/diarrhea or peripheral edema. (Jessica Vora) - Related Data Home Medications Medication Instructions Recorded Confirmed Cetirizine HCl [Zyrtec] 10 mg PO DAILY 01/16/23 12/15/24 Methylphenidate HCl [Ritalin] 20 mg PO DAILY 12/08/24 12/15/24 Amoxic-Pot Clav 875-125Mg 1 tab PO BID 12/15/24 12/15/24 [Augmentin 875-125] Allergies Allergy/AdvReac Type Severity Reaction Status Date / Time No Known Allergies Allergy Verified 12/15/24 15:15 Review of Systems ROS Other: All systems not noted in ROS Statement are negative. <Jessica Vora - Last Filed: 12/15/24 15:03> ROS Other: All systems not noted in ROS Statement are negative. <Macie Adam - Last Filed: 12/15/24 19:39> ROS Statement: Those systems with pertinent positive or pertinent negative responses have been documented in the HPI. Past Medical History Past Medical History: No Reported History Additional Past Medical History / Comment(s): low hemaglobin and low iron History of Any Multi-Drug Resistant Organisms: None Reported Past Surgical History: Adenoidectomy, Cholecystectomy, Tonsillectomy Past Anesthesia/Blood Transfusion Reactions: No Reported Reaction Past Psychological History: Anxiety, Depression Smoking Status: Never smoker Past Alcohol Use History: Occasional Past Drug Use History: Marijuana - Past Family History Mother Family Medical History: Cancer, Chest Pain / Angina Additional Family Medical History / Comment(s): anxiety, lung cancer Father Family Medical History: Thyroid Disorder <Jessica Vora - Last Filed: 12/15/24 15:03> General Exam Limitations: no limitations General appearance: alert, in no apparent distress Respiratory exam: Present: normal lung sounds bilaterally. Absent: respiratory distress, wheezes, rales, rhonchi, stridor Cardiovascular Exam: Present: regular rate, normal rhythm, normal heart sounds. Absent: systolic murmur, diastolic murmur, rubs, gallop, clicks GI/Abdominal exam: Present: soft, tenderness (Right-sided), normal bowel sounds Neurological exam: Present: alert, oriented X3, CN II-XII intact Skin exam: Present: warm, dry, intact, normal color. Absent: rash <Jessica Vora - Last Filed: 12/15/24 15:03> Course Vital Signs 12/15/24 12/15/24 12/15/24 12:41 15:24 16:09 Temperature 98.1 F Pulse Rate 75 69 Respiratory 18 18 16 Rate Blood Pressure 125/81 113/68 O2 Sat by Pulse 98 97 Oximetry Medical Decision Making - Lab Data Result diagrams: 12/15/24 13:39 12/15/24 13:39 - EKG Data -: EKG Interpreted by Me <Jessica Vora - Last Filed: 12/15/24 15:03> - Lab Data Result diagrams: 12/15/24 13:39 12/15/24 13:39 <Macie Adam - Last Filed: 12/15/24 19:39> - Medical Decision Making Was pt. sent in by a medical professional or institution (, PA, BASS FISHER, urgent care, hospital, or [facility]...) When possible be specific @ -No Did you speak to anyone other than the patient for history (EMS, parent, family, police, friend...)? What history was obtained from this source @ -No Did you review nursing and triage notes (agree or disagree)? Why? @ -I reviewed and agree with nursing and triage notes Were old charts reviewed (outside hosp., previous admission, EMS record, old E KG, old radiological studies, urgent care reports/EKG's, [facility] records)? Report findings @ -No old charts were reviewed Differential Diagnosis (chest pain, altered mental status, abdominal pain women, abdominal pain men, vaginal bleeding, weakness, fever, dyspnea, syncope, headache, dizziness, GI bleed, back pain, seizure, CVA, palpatations, mental health, musculoskeletal)? @ -Differential Vaginal Bleeding:Spontaneous , threatened , molar , ectopic , bloody show, incompetent cervix, abruptioplacenta, placenta previa, uterine rupture, dysfunctional uterine bleeding, hemorrhage, uterine fibroids, this is not meant to be an all-inclusive list. EKG interpreted by me (3pts min.). @ -As above X-rays interpreted by me (1pt min.). @ -None done CT interpreted by me (1pt min.). @ -None done U/S interpreted by me (1pt. min.). @ -None done What testing was considered but not performed or refused? (CT, X-rays, U/S, labs)? Why? @ -None What meds were considered but not given or refused? Why? @ -None Did you discuss the management of the patient with other professionals (professionals i.e. , PA, BASS FISHER, lab, RT, psych nurse, social media editor, clay maker, teacher, correctional officer captain, therapeutic case manager)? Give summary @ -No Was smoking cessation discussed for >3mins.? @ -No Was critical care preformed (if so, how long)? @ -No Were there social determinants of health that impacted care today? How? (Homelessness, low income, unemployed, alcoholism, drug addiction, transportation, low edu. Level, literacy, decrease access to med. care, [facility], rehab)? @ -No Was there de-escalation of care discussed even if they declined (Discuss DNR or withdrawal of care, Hospice)? DNR status @ -No What co-morbidities impacted this encounter? (DM, HTN, Smoking, COPD, CAD, Cancer, CVA, ARF, Chemo, Hep., AIDS, mental health diagnosis, sleep apnea, morbid obesity)? @ -None Was patient admitted / discharged? Hospital course, mention meds given and route, prescriptions, significant lab abnormalities, going to OR and other pertinent info. @ -29-year-old female presented to ER for evaluation of vaginal bleeding and dizziness.. Upon rooming, history and physical exam completed. Vitals within acceptable limits. Laboratory studies showing a microcytic hypochromic anemia 9.5. WBC 6.2. CMP unimpressive. Viral swabs negative. Urinalysis pending. Patient signed out to Macie Adam PA-C at my shift completion pending UA and disposition. (Jessica Vora) Case signed out to me by Jessica Vora PA-C, at shift completion. Patient had been experiencing heavy vaginal bleeding at the start of her period. This was consistent with prior menstrual cycles, however she is concerned that she started to feel dizzy and lightheaded. Hemoglobin of 9.5 is stable when compared most recent values. Urinalysis demonstrates blood but is negative for signs of infection. She will continue trying to become established with an CLERK TO JUSTICE for further evaluation of this issue and will also follow-up with her PCP to recheck her iron levels. Advised she can try taking an oral iron supplement as well. We also discussed NSAIDs can reduce vaginal bleeding during her period. Patient discharged home in stable condition. Case discussed with ED attending Dr. Seo. Return precautions reviewed in depth, the patient is instructed to return to the emergency department with any new, worsening, or concerning symptoms. Patient verbalized understanding. (Macie Adam) - Lab Data Lab Results 12/15/24 12/15/24 12/15/24 Range/Units 13:39 13:39 13:44 WBC 6.2 (3.8-10.6) k/uL RBC 5.07 (3.80-5.40) m/uL Hgb 9.5 L (11.4-16.0) gm/dL Hct 33.3 L (34.0-46.0) % MCV 65.8 L (80.0-100.0) fL MCH 18.7 L (25.0-35.0) pg MCHC 28.3 L (31.0-37.0) g/dL RDW 21.5 H (11.5-15.5) % Plt Count 287 (150-450) k/uL MPV 8.5 Neutrophils % 62 % Lymphocytes % 30 % Monocytes % 4 % Eosinophils % 1 % Basophils % 1 % Neutrophils # 3.8 (1.3-7.7) k/uL Lymphocytes # 1.9 (1.0-4.8) k/uL Monocytes # 0.3 (0-1.0) k/uL Eosinophils # 0.1 (0-0.7) k/uL Basophils # 0.0 (0-0.2) k/uL Hypochromasia Marked Poikilocytosis Slight Anisocytosis Moderate Microcytosis Marked Sodium 137 (137-145) mmol/L Potassium 4.0 (3.5-5.1) mmol/L Chloride 104 (98-107) mmol/L Carbon Dioxide 27 (22-30) mmol/L Anion Gap 6 mmol/L BUN 10 (7-17) mg/dL Creatinine 0.64 (0.52-1.04) mg/dL Est GFR (CKD-EPI)AfAm >90 (>60 ml/min/1.73 sqM) Est GFR (CKD-EPI)NonAf >90 (>60 ml/min/1.73 sqM) Glucose 88 (74-99) mg/dL Calcium 9.3 (8.4-10.2) mg/dL Total Bilirubin 0.3 (0.2-1.3) mg/dL AST 49 H (14-36) U/L ALT 60 H (4-34) U/L Alkaline Phosphatase 98 (38-126) U/L Total Protein 7.0 (6.3-8.2) g/dL Albumin 4.1 (3.5-5.0) g/dL Amylase (30-110) U/L Lipase (23-300) U/L Urine Color Urine Appearance (Clear) Urine pH (5.0-8.0) Ur Specific Hankinson (1.001-1.035) Urine Protein (Negative) Urine Glucose (UA) (Negative) Urine Ketones (Negative) Urine Blood (Negative) Urine Nitrite (Negative) Urine Bilirubin (Negative) Urine Urobilinogen (<2.0) mg/dL Ur Leukocyte Esterase (Negative) Urine RBC (0-5) /hpf Urine WBC (0-5) /hpf Ur Squamous Epith Cells (0-4) /hpf Urine HCG, Qual (Not Detectd) Influenza Type A (PCR) Not Detected (Not Detectd) Influenza Type B (PCR) Not Detected (Not Detectd) RSV (PCR) Not Detected (Not Detectd) SARS-CoV-2 (PCR) Not Detected (Not Detectd) 12/15/24 12/15/24 12/15/24 Range/Units 13:44 15:32 15:32 WBC (3.8-10.6) k/uL RBC (3.80-5.40) m/uL Hgb (11.4-16.0) gm/dL Hct (34.0-46.0) % MCV (80.0-100.0) fL MCH (25.0-35.0) pg MCHC (31.0-37.0) g/dL RDW (11.5-15.5) % Plt Count (150-450) k/uL MPV Neutrophils % % Lymphocytes % % Monocytes % % Eosinophils % % Basophils % % Neutrophils # (1.3-7.7) k/uL Lymphocytes # (1.0-4.8) k/uL Monocytes # (0-1.0) k/uL Eosinophils # (0-0.7) k/uL Basophils # (0-0.2) k/uL Hypochromasia Poikilocytosis Anisocytosis Microcytosis Sodium (137-145) mmol/L Potassium (3.5-5.1) mmol/L Chloride (98-107) mmol/L Carbon Dioxide (22-30) mmol/L Anion Gap mmol/L BUN (7-17) mg/dL Creatinine (0.52-1.04) mg/dL Est GFR (CKD-EPI)AfAm (>60 ml/min/1.73 sqM) Est GFR (CKD-EPI)NonAf (>60 ml/min/1.73 sqM) Glucose (74-99) mg/dL Calcium (8.4-10.2) mg/dL Total Bilirubin (0.2-1.3) mg/dL AST (14-36) U/L ALT (4-34) U/L Alkaline Phosphatase (38-126) U/L Total Protein (6.3-8.2) g/dL Albumin (3.5-5.0) g/dL Amylase 70 (30-110) U/L Lipase 195 (23-300) U/L Urine Color Colorless Urine Appearance Clear (Clear) Urine pH 7.0 (5.0-8.0) Ur Specific Hankinson 1.008 (1.001-1.035) Urine Protein Negative (Negative) Urine Glucose (UA) Negative (Negative) Urine Ketones Negative (Negative) Urine Blood Large H (Negative) Urine Nitrite Negative (Negative) Urine Bilirubin Negative (Negative) Urine Urobilinogen <2.0 (<2.0) mg/dL Ur Leukocyte Esterase Negative (Negative) Urine RBC 28 H (0-5) /hpf Urine WBC 1 (0-5) /hpf Ur Squamous Epith Cells 1 (0-4) /hpf Urine HCG, Qual Not Detected (Not Detectd) Influenza Type A (PCR) (Not Detectd) Influenza Type B (PCR) (Not Detectd) RSV (PCR) (Not Detectd) SARS-CoV-2 (PCR) (Not Detectd) - EKG Data EKG Comments: EKG showing sinus rhythm with sinus arrhythmia. No ST segment elevations or depressions. No T wave abnormalities. Ventricular rate 64, NM interval 169, QRS ration 101, QT/QTc 429/438. (Jessica Vora) Disposition <Jessica Vora - Last Filed: 12/15/24 15:03> Is patient prescribed a controlled substance at d/c from ED?: No Time of Disposition: 16:06 <Macie Adam - Last Filed: 12/15/24 19:39> Clinical Impression: Menorrhagia, Dizziness Disposition: HOME SELF-CARE Instructions (If sedation given, give patient instructions): Menorrhagia (ED) Additional Instructions: Return to the emergency department with any new, worsening, or concerning symptoms. You can try taking an [id number] iron supplement. Be aware that this may make you constipated and turn your stool dark. Taking an [id number] anti-inflammatory such as ibuprofen or naproxen can also help to slow the bleeding. Referrals: Mallory Dyer MD [Primary Care Provider] - 1-2 days
[2024-12-15] MEDS: SODIUM CHLORIDE 0.9% 1,000 ML IV STA (13:44)
[2024-12-15 13:49] LABS: Anisocytosis Moderate; Basophils % (A) 1 %; Eosinophils # (A) 0.1 k/uL (0-0.7); Eosinophils % (A) 1 %; HCT 33.3 % (34.0-46.0); HGB 9.5 gm/dL (11.4-16.0); Hypochromasia Marked; Lymphocytes # (A) 1.9 k/uL (1.0-4.8); Lymphocytes % (A) 30 %; MCH 18.7 pg (25.0-35.0); MCHC 28.3 g/dL (31.0-37.0); MCV 65.8 fL (80.0-100.0); Mean Platelet Volume 8.5; Microcytosis Marked; Monocytes # (A) 0.3 k/uL (0-1.0); Monocytes % (A) 4 %; Neutrophils # (A) 3.8 k/uL (1.3-7.7); Neutrophils % (A) 62 %; Platelet Count 287 k/uL (150-450); Poikilocytosis Slight; RBC 5.07 m/uL (3.80-5.40); RDW 21.5 % (11.5-15.5); WBC 6.2 k/uL (3.8-10.6)
[2024-12-15 14:01] LABS: ALT 60 U/L (4-34); AST 49 U/L (14-36); African American GFR (CKD) >90 (>60 ml/min/1.73 sqM); Albumin 4.1 g/dL (3.5-5.0); Alkaline Phosphatase 98 U/L (38-126); Anion Gap 6 mmol/L; Blood Urea Nitrogen 10 mg/dL (7-17); Calcium 9.3 mg/dL (8.4-10.2); Carbon Dioxide 27 mmol/L (22-30); Chloride 104 mmol/L (98-107); Glucose 88 mg/dL (74-99); Non-African American GFR(CKD) >90 (>60 ml/min/1.73 sqM); Sodium 137 mmol/L (137-145); Total Bilirubin 0.3 mg/dL (0.2-1.3)
[2024-12-15 14:28] LABS: Influenza A Not Detected (Not Detectd); Influenza B Not Detected (Not Detectd); RSV Not Detected (Not Detectd)
[2024-12-15 15:07] LABS: Amylase 70 U/L (30-110); Lipase 195 U/L (23-300)
[2024-12-15 15:27] VITALS: BP 113/68; PULSE 69
[2024-12-15 15:49] LABS: Appearance,Urine Clear (Clear); Bilirubin,Urine Negative (Negative); Blood,Urine Large (Negative); Color,Urine Colorless; Glucose,Urine (UA) Negative (Negative); Ketones,Urine Negative (Negative); Leukocyte Esterase,Urine Negative (Negative); Nitrite,Urine Negative (Negative); Protein,Urine Negative (Negative); RBC,Urine 28 /hpf (0-5); Specific Gravity,Urine 1.008 (1.001-1.035); Squamous Epithelial Cell,Urine 1 /hpf (0-4); Urobilinogen,Urine <2.0 mg/dL (<2.0); WBC,Urine 1 /hpf (0-5)
[2024-12-15 16:28] VITALS: RESP 16
== END 2024-12-15 16:28 | disposition home or self-care (01) ==
LOC: EC 12:39
DX: N92.0 Excessive and frequent menstruation with regular cycle (principal); R42 Dizziness and giddiness; Z11.52 Encounter for screening for COVID-19
CPT/HCPCS: 36415; 80053; 81001; 81025; 82150; 83690; 85025; 87636; 93005; 96360; 99284

== ENCOUNTER → 2025-04-29 | Outpatient (CLI) | payer OTHER ==
[2025-04-29 19:23] LABS: Basophils # (A) 0.05 X 10*3/uL (0.00-0.10); Basophils % (A) 0.6 %; Elliptocytes 2+ (None Seen); Eosinophils # (A) 0.05 X 10*3/uL (0.04-0.35); Eosinophils % (A) 0.6 %; HCT 38.7 % (37.2-46.3); Lymphocytes # (A) 1.85 X 10*3/uL (0.90-5.00); Lymphocytes % (A) 23.6 %; MCHC 28.4 g/dL (32.0-37.0); MCV 73.7 FL (80.0-97.0); Mean Platelet Volume 12.2 FL (9.5-12.2); Monocytes # (A) 0.48 X 10*3/uL (0.20-1.00); Monocytes % (A) 6.1 %; NRBC Per 100 WBC 0 X 10*3/uL (0.00-0.01); Neutrophils # (A) 5.39 X 10*3/uL (1.80-7.70); Neutrophils % (A) 68.8 %; Platelet Count 356 X 10*3/uL (140-440); RBC 5.25 X 10*6/uL (4.10-5.20); WBC 7.84 X 10*3/uL (4.50-10.00)
[2025-04-29 19:42] LABS: % Iron Saturation 4.73 (12.00-45.00); Ferritin 7.5 ng/mL (10.0-291.0)
== END | disposition home or self-care (01) ==
LOC: LABWHC1 13:02
PROVIDERS: ATTEND Family Medicine
DX: D64.9 Anemia, unspecified (principal)
CPT/HCPCS: 36415; 82728; 83540; 83550; 85025